=== PATIENT | female | born 1935 | race Caucasian/White ===

== ENCOUNTER 2016-11-27 13:20 | Inpatient (IN) | payer MEDICARE ==
[~2016-11-27 13:20] MED LIST: ADVAI100I PO; ATEN1TAB73 PO; CALC1TAB26 PO; GLUC500C4 PO; PNEU13P IM; VENTAER INH; WARF2.5T40 PO; WARF5TAB PO
[2016-11-27 13:22] VITALS: BP 150/82; PULSE 88; RESP 15; TEMP 97.6; O2SAT 98
--- NOTE | 2016-11-27 13:28 | PD ---
Physical Exam Date Seen by Provider: Nov 27, 2016 Time Seen by Provider: 13:26 Narrative 80 YOWF C/O PNEUMONIA. SICK 5 WEEKS. XRAY AT [facility] YEST WORSE. VSS. WAITING FOR BED PLACEMENT Data Data Last Documented VS Vital Signs Date Time Temp Pulse Resp B/P Pulse Ox O2 Delivery O2 Flow Rate FiO2 11/27/16 13:22 97.6 88 15 150/82 98 MDM Medical Record Reviewed: Yes Supervised Visit with AINSLEY: Yes Norm Martinez Nov 27, 2016 13:28
[2016-11-27 13:59] VITALS: BP 143/87; PULSE 91; RESP 18; O2SAT 97
[2016-11-27 14:14] LABS: AUTOMATED NEUTROPHIL # 4.5 TH/MM3 (1.8-7.7); BASOPHIL # 0.1 TH/MM3 (0-0.2); BASOPHIL % 0.8 % (0.0-2.0); EOSINOPHIL # 0.1 TH/MM3 (0-0.4); EOSINOPHIL % 0.8 % (0.0-4.0); HEMATOCRIT 40.4 % (35.0-46.0); HEMO FLAGS DIFF FINAL; LYMPH % 31.8 % (9.0-44.0); LYMPHOCYTE # 2.4 TH/MM3 (1.0-4.8); MEAN CELL VOLUME 90.2 FL (80.0-100.0); MEAN CORPUSCULAR HEMOGLOBIN 30.5 PG (27.0-34.0); MEAN CORPUSCULAR HGB CONC 33.8 % (32.0-36.0); MONO % 8.4 % (0.0-8.0); NEUT % 58.2 % (16.0-70.0); PLATELET COUNT 198 TH/MM3 (150-450); RED BLOOD COUNT 4.47 MIL/MM3 (4.00-5.30); WHITE BLOOD COUNT 7.6 TH/MM3 (4.0-11.0)
[2016-11-27] MEDS ORDERED: VANCOMYCIN INJ 1,000 MG in SODIUM CHLOR 0.9% 250 ML INJ 250 ML IV ONE (14:15)
--- NOTE | 2016-11-27 14:21 | PD ---
HPI Chief Complaint: Respiratory Symptoms Time Seen by Provider: 14:16 Travel History International Travel<30 days: No Contact w/Intl Traveler<30days: No Traveled to known affect area: No History of Present Illness HPI 80-year-old female that presents to the ED for evaluation of worsening pneumonia. Per patient she follows with the [facility] doctor or Dr. HUGHES who evaluated her about 5 weeks ago and started her on azithromycin. At the time patient had a lot of cough and runny nose as well as congestion fevers chills and sweats as well as more weakness than recently. Per patient she did not get better and she had an x-ray done by her doctor which show pneumonia on the left lungs. Patient was then given Levaquin and she has finished the Levaquin and apparently was scheduled to have an x-ray which she got done yesterday at [email or web address] which show worsening pneumonia of the left lung. Patient was called by her doctor and told to come to the ED for IV antibiotics and likely admission. She states that overall she feels somewhat better. States that her cough and congestion seems to have improved although she does have some weakness that is still present. She denies any history of smoking but does have a history of COPD and asthma in the past. She states that she's been using her inhalers as prescribed by her doctor. She also has a history of A. fib and takes and the correlation for this. Per patient she has no pain. No abdominal pain. No nausea or vomiting. No diarrhea. Overall she feels well and is surprised of the findings on the x-ray. PFSH Past Medical History Arthritis: Yes Atrial Fibrillation: Yes Autoimmune Disease: No Blood Disorders: No Anxiety: No Depression: No Heart Rhythm Problems: Yes Cancer: Yes Cardiovascular Problems: Yes High Cholesterol: No COPD: Yes Endocrine: No Gastrointestinal Disorders: No Genitourinary: No Hiatal Hernia: Yes (03/2005) Neurologic: No Psychiatric: No Respiratory: Yes (EMPHYZEMA) Immunizations Current: Yes Myocardial Infarction: No Pneumonia: Yes Sickle Cell Disease: No PNEUMOCCOCAL Vaccine (Year): 2006 Menopausal: Yes Past Surgical History Abdominal Surgery: Yes (BOWEL OBSTRUCTION) Cholecystectomy: Yes (04/1997) Eye Surgery: Yes (BILAT CATARACT) Genitourinary Surgery: Yes (02/1973 PLASTIC INTERNAL URETHOTOMY) Gynecologic Surgery: Yes Hysterectomy: Yes (TOTAL 08/1977) Thoracic Surgery: Yes (LUMPECTOMY 04/1994) Other Surgery: Yes (REMOVAL ETHNOID SINUS, KIDNEY STONE) Social History Alcohol Use: Yes (WINE WITH DINNER) Tobacco Use: No Substance Use: No Allergies-Medications (Allergen,Severity, Reaction): Coded Allergies: Aspirin (Verified Allergy, Severe, 04/09/16) Bextra (Verified Allergy, Severe, 04/09/16) Celebrex (Verified Allergy, Severe, 04/09/16) Darvocet-N 100 (Verified Allergy, Severe, 04/09/16) Ibuprofen (Verified Allergy, Severe, 04/09/16) Oxycodone (Verified Allergy, Severe, 04/09/16) Parafon Forte (Verified Allergy, Severe, 04/09/16) Paroxetine (Verified Allergy, Severe, 04/09/16) Paxil (Verified Allergy, Severe, 04/09/16) Penicillin (Verified Allergy, Severe, 04/09/16) Percocet (Verified Allergy, Severe, 04/09/16) Prilosec (Verified Allergy, Severe, 04/09/16) Robaxin (Verified Allergy, Severe, 04/09/16) Salsalate (Verified Allergy, Severe, 04/09/16) Sulfa (Verified Allergy, Severe, 04/09/16) Temazepam (Verified Allergy, Severe, 04/09/16) Amoxicillin (Verified Allergy, Unknown, 11/27/16) Clindamycin (Verified Allergy, Unknown, 11/27/16) Ofloxacin (Verified Allergy, Unknown, 11/27/16) Toprol Xl (Verified Allergy, Unknown, 11/27/16) Vancenase (Verified Allergy, Unknown, 11/27/16) Uncoded Allergies: CLINORIL (Allergy, Severe, 11/12/11) Reported Meds & Prescriptions Reported Meds & Active Scripts Active Review of Systems Except as stated in HPI: all other systems reviewed are Neg Physical Exam Narrative GENERAL: Well-nourished, well-developed patient in no apparent distress. SKIN: Warm and dry. HEAD: Atraumatic. Normocephalic. EYES: Pupils equal and round reactive to light and accommodation. No scleral icterus. No injection or drainage. ENT: No nasal bleeding or discharge. Mucous membranes pink and moist. TMs are clear with no sign of infection or perforation. No mastoid tenderness. Ear canals are intact bilaterally. No lymphadenopathy. Nostril mucosa is red and moist with clear mucus noted. No sinus tenderness to palpation noted. Tonsils are not enlarged or swollen. No ulvua Deviation. Tongue is midline. NECK: Trachea midline. No JVD. No meningeal signs noted CARDIOVASCULAR: Regular rate and rhythm. No murmurs, S3, S4. RESPIRATORY: No accessory muscle use. Mild wheezing in the lower lung lacey bilaterally. Breath sounds equal bilaterally. GASTROINTESTINAL: Abdomen soft, non-tender, nondistended. Hepatic and splenic margins not palpable. MUSCULOSKELETAL: Extremities without clubbing, cyanosis, or edema. No obvious deformities. Full range of motion of the upper and lower extremities bilaterally. 2+ pulses bilaterally. NEUROLOGICAL: Awake and alert. No obvious cranial nerve deficits. Motor grossly within normal limits. Five out of 5 muscle strength in the arms and legs. Normal speech. PSYCHIATRIC: Appropriate mood and affect; insight and judgment normal. Data Data Last Documented VS Vital Signs Date Time Temp Pulse Resp B/P Pulse Ox O2 Delivery O2 Flow Rate FiO2 11/27/16 13:59 91 18 143/87 97 Room Air 11/27/16 13:22 97.6 Orders Complete Blood Count With Diff (11/27/16 13:36) Basic Metabolic Panel (Bmp) (11/27/16 13:36) Blood Culture (11/27/16 13:36) Magnesium (Mg) (11/27/16 13:36) Iv Access Insert/Monitor (11/27/16 13:36) Coag Profile (11/27/16 13:44) Vancomycin Inj (Vancomycin Inj) (11/27/16 14:15) Sputum Culture And Gram Stain (11/27/16 14:15) Admit Order (Ed Use Only) (11/27/16 14:28) Labs Laboratory Tests Test 11/27/16 14:00 White Blood Count 7.6 TH/MM3 Red Blood Count 4.47 MIL/MM3 Hemoglobin 13.7 GM/DL Hematocrit 40.4 % Mean Corpuscular Volume 90.2 FL Mean Corpuscular Hemoglobin 30.5 PG Mean Corpuscular Hemoglobin 33.8 % Concent Red Cell Distribution Width 15.0 % Platelet Count 198 TH/MM3 Mean Platelet Volume 8.2 FL Neutrophils (%) (Auto) 58.2 % Lymphocytes (%) (Auto) 31.8 % Monocytes (%) (Auto) 8.4 % Eosinophils (%) (Auto) 0.8 % Basophils (%) (Auto) 0.8 % Neutrophils # (Auto) 4.5 TH/MM3 Lymphocytes # (Auto) 2.4 TH/MM3 Monocytes # (Auto) 0.6 TH/MM3 Eosinophils # (Auto) 0.1 TH/MM3 Basophils # (Auto) 0.1 TH/MM3 CBC Comment DIFF FINAL Differential Comment Prothrombin Time 28.4 SEC Prothromb Time International 2.5 RATIO Ratio Activated Partial 41.1 SEC Thromboplast Time Sodium Level 134 MEQ/L Potassium Level 4.2 MEQ/L Chloride Level 101 MEQ/L Carbon Dioxide Level 23.6 MEQ/L Anion Gap 9 MEQ/L Blood Urea Nitrogen 8 MG/DL Creatinine 0.78 MG/DL Estimat Glomerular Filtration 71 ML/MIN Rate Random Glucose 94 MG/DL Calcium Level 8.8 MG/DL Magnesium Level 2.1 MG/DL MDM Medical Decision Making Medical Screen Exam Complete: Yes Emergency Medical Condition: Yes Medical Record Reviewed: Yes Interpretation(s) CBC & BMP Diagram 11/27/16 14:00 Coags with INR of 2.5 Differential Diagnosis Worsening pneumonia versus aspiration pneumonia versus COPD versus infiltrate Narrative Course 80-year-old female that presents to the ED for evaluation of worsening pneumonia. Patient was properly examined and was found to have signs and symptoms concerning for worsening pneumonia. I spoke with Dr. HUGHES on the phone who gave me a summary of the patient and recommends admission as patient has failed outpatient treatment worsening pneumonia on chest x-ray outpatient. Labs were started. Patient was started on IV vancomycin after speaking with my attending who agrees with plan. [facility] will be contacted. I spoke with Dr. Alonso who agrees to admission. Procedures EKG Prior to Arrival: No Diagnosis Primary Impression: Pneumonia Qualified Code: J18.1 - Pneumonia of left lower lobe due to infectious organism Admitting Information Admitting Physician Requests: Admit Gentry Paris Nov 27, 2016 14:21
[2016-11-27 14:22] LABS: APTT (PATIENT) 41.1 SEC (24.3-30.1); INTERNATIONAL NORMALIZED RATIO 2.5 RATIO; PROTHROMBIN TIME - PATIENT 28.4 SEC (9.8-11.6)
[2016-11-27 14:26] LABS: BICARBONATE 23.6 MEQ/L (21.0-32.0); MAGNESIUM 2.1 MG/DL (1.5-2.5); POTASSIUM 4.2 MEQ/L (3.5-5.1)
[2016-11-27] MEDS ORDERED: METO50TA PO (14:40)
[2016-11-27] MEDS ORDERED: ADVA250A INH (14:40)
[2016-11-27] MEDS ORDERED: TYLE325T PO (14:40)
[2016-11-27] MEDS ORDERED: OMEG10005 PO (14:40)
[2016-11-27] MEDS ORDERED: FEXO15TA PO (14:40)
[2016-11-27] MEDS ORDERED: [UNRECOGNIZED DRUG - CODE] PO (14:40)
[2016-11-27] MEDS ORDERED: IPRA17I INH (14:40)
[2016-11-27] MEDS ORDERED: GLUCCAP5 PO (14:40)
[2016-11-27] MEDS ORDERED: LUTE1TAB PO (14:40)
[2016-11-27] MEDS ORDERED: PROB1TAB PO (14:40)
[2016-11-27] MEDS ORDERED: COUM5TAB PO ×2 (14:40)
[2016-11-27] MEDS ORDERED: SUPETAB25 PO (14:40)
--- NOTE | 2016-11-27 14:40 | PD ---
Physical Exam Narrative I, Dr. Christianson, have reviewed the advance practice practitioner's documentation and am in agreement, met with the patient face to face, made the diagnosis, and the medical decision making was done by me. *My assessment and Findings: Pneumonia that failed outpatient treatment. 80yo F sent in by PMD for worsening pneumonia seen on CXR. Pt does complain of generalized weakness but is not more sob and coughing has improved. Labs reviewed, no leukocytosis. BMP unremarkable. Pt is allergic to a lot of medications. Will give vancomycin and aztreonam. Pt admitted to Dr. Figueroa. Data Data Last Documented VS Vital Signs Date Time Temp Pulse Resp B/P Pulse Ox O2 Delivery O2 Flow Rate FiO2 11/27/16 13:59 91 18 143/87 97 Room Air 11/27/16 13:22 97.6 Orders Complete Blood Count With Diff (11/27/16 13:36) Basic Metabolic Panel (Bmp) (11/27/16 13:36) Blood Culture (11/27/16 13:36) Magnesium (Mg) (11/27/16 13:36) Iv Access Insert/Monitor (11/27/16 13:36) Coag Profile (11/27/16 13:44) Vancomycin Inj (Vancomycin Inj) (11/27/16 14:15) Sputum Culture And Gram Stain (11/27/16 14:15) Admit Order (Ed Use Only) (11/27/16 14:28) Labs Laboratory Tests Test 11/27/16 14:00 White Blood Count 7.6 TH/MM3 Red Blood Count 4.47 MIL/MM3 Hemoglobin 13.7 GM/DL Hematocrit 40.4 % Mean Corpuscular Volume 90.2 FL Mean Corpuscular Hemoglobin 30.5 PG Mean Corpuscular Hemoglobin 33.8 % Concent Red Cell Distribution Width 15.0 % Platelet Count 198 TH/MM3 Mean Platelet Volume 8.2 FL Neutrophils (%) (Auto) 58.2 % Lymphocytes (%) (Auto) 31.8 % Monocytes (%) (Auto) 8.4 % Eosinophils (%) (Auto) 0.8 % Basophils (%) (Auto) 0.8 % Neutrophils # (Auto) 4.5 TH/MM3 Lymphocytes # (Auto) 2.4 TH/MM3 Monocytes # (Auto) 0.6 TH/MM3 Eosinophils # (Auto) 0.1 TH/MM3 Basophils # (Auto) 0.1 TH/MM3 CBC Comment DIFF FINAL Differential Comment Prothrombin Time 28.4 SEC Prothromb Time International 2.5 RATIO Ratio Activated Partial 41.1 SEC Thromboplast Time Sodium Level 134 MEQ/L Potassium Level 4.2 MEQ/L Chloride Level 101 MEQ/L Carbon Dioxide Level 23.6 MEQ/L Anion Gap 9 MEQ/L Blood Urea Nitrogen 8 MG/DL Creatinine 0.78 MG/DL Estimat Glomerular Filtration 71 ML/MIN Rate Random Glucose 94 MG/DL Calcium Level 8.8 MG/DL Magnesium Level 2.1 MG/DL MDM Supervised Visit with AINSLEY: Yes Diagnosis Primary Impression: Pneumonia Qualified Code: J18.1 - Pneumonia of left lower lobe due to infectious organism Admitting Information Admitting Physician Requests: Danielle Son DO Nov 27, 2016 14:40
[2016-11-27] MEDS ORDERED: AZTREONAM INJ 1,000 MG in SODIUM CHLORIDE 0.9% INJ 100 ML IV ONE (14:45)
--- NOTE | 2016-11-27 15:50 | HHI.HP ---
HPI Service [facility] Hospitalists Primary Care Physician Neeru Diaz MD Admission Diagnosis acute pneumonia, failed outpatient treatment Chief Complaint: Productive cough, SOB Travel History International Travel<30 Days: No Contact w/Intl Traveler <30 Da: No Traveled to Known Affected Are: No History of Present Illness Ms. Keith is an 80 y/o WF with asthma, COPD, paroxysmal atrial fibrillation on chronic anticoagulation with Coumadin, HTN, and pulmonary HTN. She was sent to the ED by her PCP for abnormal CXR. Pt reports that around 5 weeks ago she developed productive cough, congestion, fevers/chills and generalized weakness with pleuritic chest pain. She was seen by Dr. Diaz, her PCP, on 10/30/16 and was prescribed Azithromycin. Pt was sent for a CXR at that time which noted atherosclerosis of the thoracic aorta, cardiomegaly and COPD changes with scarring involving the lung lacey especially the apices but no acute process. Pt did not have any relief of her symptoms with completion of the Azithromycin and called her PCP. Pt had Levaquin and Prednisone called in and she was sent for another CXR on 11/05 which noted interval development of a patchy basilar infiltrate when compared to earlier study and are more focal consolidative infiltrate involving the left lower lung field and minimal infiltrate in probably the right middle lobe also noted. She reports that over the last week or so she has been feeling better overall but still having intermittent productive cough and has still felt SOB. Her SOB has not improved much and she is still getting winded easily with minimal ambulation. Pt was sent for repeat CXR on 11/26/16 which noted increasing abnormal density and consolidation at the right lung base probably representing worsening pneumonia and consolidation which has increased from the most recent study, some streaky infiltrate at the left base medically unchanged, and chronic changes at the apices are unchanged from previous study. Pt was called with the results of her most recent CXR and instructed to come to the ED for IV antibiotics and further workup. Labs at admission noted a normal WBC count. She has been afebrile. Pt does have a hx of asthma and COPD. Her last PFT in 10/15/16 noted FEV1 is 54% predicted. Pt denies any hx of tobacco use but she did had second hand smoke exposure for several years. She takes Advair BID and Atrovent Q4H. Pt had tried some breathing treatments with Albuterol in the past but had to stop this due to it causing her HR to go too fast. Review of Systems Constitutional: COMPLAINS OF: Change in appetite, DENIES: Fever, Chills Ears, nose, mouth, throat: DENIES: Vertigo, Throat pain, Running Nose Respiratory: COMPLAINS OF: Cough, Sputum production, Shortness of breath Cardiovascular: DENIES: Chest pain, Palpitations Gastrointestinal: DENIES: Abdominal pain, Diarrhea, Nausea, Vomiting Genitourinary: DENIES: Hematuria Musculoskeletal: DENIES: Joint pain, Neck pain Integumentary: DENIES: Rash Neurologic: DENIES: Headache Psychiatric: DENIES: Confusion Past Family Social History Past Medical History A. fib COPD Asthma Recurrent bladder infections, follows with Dr. Brownlee Hx of bowel obstruction Osteoarthritis Past Surgical History Cholecystectomy Lumpectomy, negative for malignancy NILDA + BSO (08/1977) Plastic internal urethrotomy (02/2013) Small bowel resection secondary to obstruction (10/2011) Reported Medications Metoprolol Tartrate 25 Mg PO BID Tylenol (Acetaminophen) 325 Mg Tab 650 Mg PO TID Jerri Allergy (Fexofenadine HCl) 180 Mg Tab 180 Mg PO DAILY Coumadin (Warfarin) 5 Mg Tab 2.5 Mg PO SUMO Take 1/2 tablet (2.5mg) on Saturday,Saturday,Saturday, and Saturday Coumadin (Warfarin) 5 Mg Tab 5 Mg PO Take 1 tablet (5mg) on Saturday and Saturday Atrovent HFA 12.9 GM Inh (Ipratropium [place]) 17 Mcg/Act Aer 2 Puff INH BID Advair Diskus Inh (Fluticasone-Salmeterol Inh) 250-50 Mcg/Blist Aer 1 Puff INH BID Rinse mouth after use. Lutein Unknown Strength Tab 1 Tab PO DAILY Probiotic (Probiotic Product) 1 Tab Tab 1 Tab PO DAILY [place]-3 Fish Oil 1000 mg ([place]-3 Fatty Acids) 1 Cap Cap 1,000 Mg PO DAILY Glucosamine-Chondroitin (Misc Natural Products) 1 Cap 1 Cap PO BID Calcium-Carb 600 + D (Calcium Carbonate-Vitamin D) 600-125 Mg-Unit Tab 1 Tab PO DAILY Super B-50 (B-Complex W/Biotin & Folic Acid) Unknown Strength Tab 1 Tab PO DAILY Allergies: Coded Allergies: Aspirin (Verified Allergy, Severe, 04/09/16) Bextra (Verified Allergy, Severe, 04/09/16) Celebrex (Verified Allergy, Severe, 04/09/16) Darvocet-N 100 (Verified Allergy, Severe, 04/09/16) Ibuprofen (Verified Allergy, Severe, 04/09/16) Oxycodone (Verified Allergy, Severe, 04/09/16) Parafon Forte (Verified Allergy, Severe, 04/09/16) Paroxetine (Verified Allergy, Severe, 04/09/16) Paxil (Verified Allergy, Severe, 04/09/16) Penicillin (Verified Allergy, Severe, 04/09/16) Percocet (Verified Allergy, Severe, 04/09/16) Prilosec (Verified Allergy, Severe, 04/09/16) Robaxin (Verified Allergy, Severe, 04/09/16) Salsalate (Verified Allergy, Severe, 04/09/16) Sulfa (Verified Allergy, Severe, 04/09/16) Temazepam (Verified Allergy, Severe, 04/09/16) Amoxicillin (Verified Allergy, Unknown, 11/27/16) Clindamycin (Verified Allergy, Unknown, 11/27/16) Ofloxacin (Verified Allergy, Unknown, 11/27/16) Toprol Xl (Verified Allergy, Unknown, 11/27/16) Vancenase (Verified Allergy, Unknown, 11/27/16) Uncoded Allergies: CLINORIL (Allergy, Severe, 11/12/11) Family History Father with hx of DM Mother with hx of liver cirrhosis (no EtOH abuse) Social History Occasional alcohol use, one glass of wine three times per week, but none for the last few weeks Denies any hx of tobacco use but she was exposed to second hand smoke for several years Denies any hx of illicit drug use Physical Exam Vital Signs Vital Signs Date Time Temp Pulse Resp B/P Pulse Ox O2 Delivery O2 Flow Rate FiO2 11/27/16 13:59 91 18 143/87 97 Room Air 11/27/16 13:39 70 18 Room Air 11/27/16 13:22 97.6 88 15 150/82 98 Physical Exam GENERAL: This is a well-nourished, well-developed patient, in no apparent distress. HEENT: Atraumatic. Normocephalic. No temporal or scalp tenderness. No scleral icterus. Airway patent. NECK: Trachea midline, supple, nontender. CARDIO: Regular. RESP: Scattered rhonchi. Egophony at the right base noted ABD: +BS, soft, non-tender, nondistended. EXT: Extremities without clubbing, cyanosis, or edema. NEURO: Awake and alert. Motor and sensory grossly within normal limits. Normal speech. Laboratory Laboratory Tests Test 11/27/16 14:00 White Blood Count 7.6 Red Blood Count 4.47 Hemoglobin 13.7 Hematocrit 40.4 Mean Corpuscular Volume 90.2 Mean Corpuscular Hemoglobin 30.5 Mean Corpuscular Hemoglobin 33.8 Concent Red Cell Distribution Width 15.0 Platelet Count 198 Mean Platelet Volume 8.2 Neutrophils (%) (Auto) 58.2 Lymphocytes (%) (Auto) 31.8 Monocytes (%) (Auto) 8.4 Eosinophils (%) (Auto) 0.8 Basophils (%) (Auto) 0.8 Neutrophils # (Auto) 4.5 Lymphocytes # (Auto) 2.4 Monocytes # (Auto) 0.6 Eosinophils # (Auto) 0.1 Basophils # (Auto) 0.1 CBC Comment DIFF FINAL Differential Comment Prothrombin Time 28.4 Prothromb Time International 2.5 Ratio Activated Partial 41.1 Thromboplast Time Sodium Level 134 Potassium Level 4.2 Chloride Level 101 Carbon Dioxide Level 23.6 Anion Gap 9 Blood Urea Nitrogen 8 Creatinine 0.78 Estimat Glomerular Filtration 71 Rate Random Glucose 94 Calcium Level 8.8 Magnesium Level 2.1 Date/Time Procedure Status Source Growth 11/27/16 14:00 Aerobic Blood Culture Received Blood Peripheral Pending 11/27/16 14:00 Anaerobic Blood Culture Received Blood Peripheral Pending Result Diagram: 11/27/16 1400 11/27/16 1400 Imaging Outpt Records: CXR (10/30/16): - Atherosclerosis of the thoracic aorta and cardiomegaly and COPD changes with scarring involving the lung lacey especially the apices. No acute process. CXR (11/05/16): - Interval development of a patchy basilar infiltrate when compared to eariler study and are more focal consolidative infiltrate involving the left lower lung field. - Minimal infiltrate in probably the right middle lobe also noted. - Findings suggest some element of pneumonitis KUB (11/14/16): - Prior surgery left lower abdomen and prior cholecystectomy. - NSBGP - No definite ileus or obstructive patter noted. - Persistent infiltrate at the right left base noted when compared with the earlier examination. This suggest some basilar atelectasis or fibrosis. CXR (11/26/16): - There is increasing abnormal density and consolidation at the right lung base probably representing worsening pneumonia and consolidation. This has increased from the most recent study. - There is some streaky infiltrate at the left base medically unchanged. - Chronic changes at the apices are unchanged from previous study. - No other acute changes noted. Septic Shock Reassessment Heart: Regular rate and rhythm Lungs: Other Skin: Warm Assessment and Plan Problem List: (1) Pneumonia Status: Acute Plan: - Pt is an 80 y/o female with asthma and COPD. - Pt reports that around 5 weeks ago she developed productive cough, congestion , fevers/chills and generalized weakness with pleuritic chest pain. - She was seen by Dr. Diaz, her PCP, on 10/30/16 and was prescribed Azithromycin and was sent for a CXR which noted no acute process. - Pt did not have any relief of her symptoms with completion of the Azithromycin and was started on Levaquin and Prednisone and sent for another CXR on 11/05 which noted interval development of a patchy basilar infiltrate when compared to earlier study and are more focal consolidative infiltrate involving the left lower lung field and minimal infiltrate in probably the right middle lobe also noted. - Pt did have some symptom relief over the last week or so she has been feeling better overall but still having intermittent productive cough and has still felt SOB and is still getting winded easily with minimal ambulation. - Pt was sent for repeat CXR on 11/26/16 which noted increasing abnormal density and consolidation at the right lung base probably representing worsening pneumonia and consolidation which has increased from the most recent study, some streaky infiltrate at the left base medically unchanged, and chronic changes at the apices are unchanged from previous study. - Pt was sent to the ED for IV antibiotics and further workup. - Labs at admission noted a normal WBC count. She has been afebrile. - CT Thorax - Pt was given Azactam and Vancomycin in the ED - We will give Levaquin IV - Cont. Advair - Ipratropium nebs Q4H WA - Pt does not want Mucinex, she reports that she has not tolerated this well. - Sputum culture - DVT prophylaxis with SCDs (2) COPD (chronic obstructive pulmonary disease) Status: Chronic Plan: - Cont. home meds - Ipratropium Q4HWA - Her last PFT in 10/15/16 noted FEV1 is 54% predicted. (3) Asthma Status: Chronic Plan: - See above. (4) Atrial fibrillation Status: Chronic Plan: - Resume Metoprolol 25mg po BID - Cont. Coumadin - Monitor INR closely as the Levaquin may cause this to be difficult to control Assessment and Plan Patient examined. Assessment and plan formulated with Stephanie Plascencia PA-C. I agree with the above. admitted for concern of persistent CAP. abx givven ct chest ordered to further evaluate the infiltrate worsening depsite abx outpt. Physician Certification 2 Midnight Certification Type: Admission for Inpatient Services Order for Inpatient Services The services are ordered in accordance with Medicare regulations or non- Medicare payer requirements, as applicable. In the case of services not specified as inpatient-only, they are appropriately provided as inpatient services in accordance with the 2-midnight benchmark. Estimated LOS (days): 2 2 days is the estimated time the patient will need to remain in the hospital, assuming treatment plan goals are met and no additional complications. Post-Hospital Plan: Home Problem Qualifiers (1) Pneumonia: Qualified Code: J18.1 - Pneumonia of left lower lobe due to infectious organism Stephanie Plascencia Nov 27, 2016 15:50 Renzo Figueroa MD Nov 28, 2016 00:37
[2016-11-27] MEDS ORDERED: ONDANSETRON HCL 4 MG/2 ML VIAL IV PRN (16:00)
[2016-11-27] MEDS ORDERED: WARFARIN SOD 5 MG TAB PO SCH (16:00)
[2016-11-27] MEDS: RESP: IPRATROPIUM 0.5 MG/2.5 ML NEB NEB SCH ×2 (16:00→20:00)
[2016-11-27 16:07] VITALS: BP 152/81; PULSE 97; RESP 18; O2SAT 98
--- NOTE | 2016-11-27 17:26 | RADRPT ---
EXAM DATE/TIME: 11/27/2016 16:34 [place] COMPARISON: No previous studies available for comparison. INDICATIONS : Pneumonia. RADIATION DOSE: 5.1 CTDIvol (mGy) MEDICAL HISTORY : Cardiovascular disease. Chronic obstructive pulmonary disease. SURGICAL HISTORY : None. ENCOUNTER: Initial ACUITY: 2 days PAIN SCALE: 0/10 LOCATION: chest TECHNIQUE: Volumetric scanning of the chest was performed. Using automated exposure control and adjustment of t he mA and/or kV according to patient size, radiation dose was kept as low as reasonably achievable to obtain optimal diagnostic quality images. FINDINGS: LUNGS: There is mild biapical probable pleural-parenchymal scarring. There are areas of nodular infiltrate i n the lung bases bilaterally, worse on the right than the left. Elsewhere, minimal patchy reticular i nfiltrate is present in portions of the lingula and right middle lobe. Mild occasional fissural thick ening is present. PLEURAE: There is no pleural thickening or pleural effusion. MEDIASTINUM: No evidence of mediastinal adenopathy or mass. Small hiatal hernia. AXILLAE: Within normal limits. No lymphadenopathy. MUSCULOSKELETAL: Within normal limits for patient age. MISCELLANEOUS: The visualized upper abdominal organs demonstrate no acute abnormality. CONCLUSION: Areas of nodular consolidative density in the bases bilaterally, most probably infectious/inflammator y however followup to assure resolution would be recommended. Lobito Shelton MD on November 27, 2016 at 17:00 Board Certified Radiologist. This report was verified electronically.
[2016-11-27 20:00] VITALS: BP 137/59; PULSE 95; RESP 18; TEMP 96.2; O2SAT 95; O2SAT 97
[2016-11-27] MEDS: METOPROLOL TARTRATE 25 MG TAB PO SCH (20:35)
[2016-11-27] MEDS: ACETAMINOPHEN 325 MG TAB PO PRN (20:57)
[2016-11-27] MEDS ORDERED: NON-FORMULARY DRUG (Fluticasone-Salmeterol Inh (Advair Diskus Inh) 1 PUFF) INH SCH (21:00)
[2016-11-27] MEDS ORDERED: METOPROLOL TARTRATE 50 MG TAB PO SCH (21:00)
[2016-11-27] MEDS: BUDESONIDE-FORMOTEROL 160/4.5 MCG INHALER INH SCH (21:00)
[2016-11-27] MEDS ORDERED: guaiFENesin E.R. 600 MG TAB PO SCH (21:00)
[2016-11-28] VITALS (8 sets, daily range): BP systolic 95–143; BP diastolic 53–89; PULSE 74–101; RESP 18; TEMP 95.9–97.2; O2SAT 95–98
[2016-11-28] MEDS: ACETAMINOPHEN 325 MG TAB PO PRN ×3 (06:24→23:00)
[2016-11-28 08:00] LABS: AUTOMATED NEUTROPHIL # 3.3 TH/MM3 (1.8-7.7); BASOPHIL # 0.1 TH/MM3 (0-0.2); BASOPHIL % 0.8 % (0.0-2.0); EOSINOPHIL # 0.1 TH/MM3 (0-0.4); EOSINOPHIL % 1.3 % (0.0-4.0); HEMATOCRIT 38.4 % (35.0-46.0); HEMO FLAGS DIFF FINAL; LYMPHOCYTE # 2.4 TH/MM3 (1.0-4.8); MEAN CELL VOLUME 90.9 FL (80.0-100.0); MEAN CORPUSCULAR HEMOGLOBIN 30.7 PG (27.0-34.0); MEAN CORPUSCULAR HGB CONC 33.8 % (32.0-36.0); MONO % 10.6 % (0.0-8.0); NEUT % 50.3 % (16.0-70.0); PLATELET COUNT 175 TH/MM3 (150-450); RED BLOOD COUNT 4.23 MIL/MM3 (4.00-5.30); RED CELL DISTRIBUTION WIDTH 15.2 % (11.6-17.2); WHITE BLOOD COUNT 6.6 TH/MM3 (4.0-11.0)
[2016-11-28 08:11] LABS: INTERNATIONAL NORMALIZED RATIO 2.8 RATIO; PROTHROMBIN TIME - PATIENT 32.6 SEC (9.8-11.6)
[2016-11-28 08:28] LABS: BICARBONATE 28.7 MEQ/L (21.0-32.0); MAGNESIUM 2.1 MG/DL (1.5-2.5); POTASSIUM 4.3 MEQ/L (3.5-5.1)
[2016-11-28] MEDS: RESP: IPRATROPIUM 0.5 MG/2.5 ML NEB NEB SCH ×4 (08:33→20:08)
[2016-11-28] MEDS ORDERED: RESP: BUDESONIDE 0.5 MG/2 ML NEB NEB ONE (09:00)
[2016-11-28] MEDS: METOPROLOL TARTRATE 25 MG TAB PO SCH ×2 (09:19→21:25)
[2016-11-28] MEDS: BUDESONIDE-FORMOTEROL 160/4.5 MCG INHALER INH SCH ×2 (09:19→21:26)
[2016-11-28] MEDS: LEVOFLOXACIN 500 MG PREMIX INJ 100 ML IV SCH (09:19)
--- NOTE | 2016-11-28 09:23 | HHI.PR ---
Subjective Remarks still somewhat sob. was having more productive cough until yesterday now more dry. Objective Vitals no labored breathing heart reg lung improved air entry abd s/nt ext no edema Vital Signs Date Time Temp Pulse Resp B/P Pulse Ox O2 Delivery O2 Flow Rate FiO2 11/28/16 08:46 96.9 93 18 100/69 96 11/28/16 04:00 95.9 79 18 130/66 97 11/28/16 00:00 96.0 74 18 95/53 96 11/27/16 20:00 96.2 95 18 137/59 95 11/27/16 20:00 97 21 11/27/16 16:07 97 18 152/81 98 Room Air 11/27/16 13:59 91 18 143/87 97 Room Air 11/27/16 13:39 70 18 Room Air 11/27/16 13:22 97.6 88 15 150/82 98 11/27/16 11/27/16 11/28/16 15:00 23:00 07:00 Intake Total 420 ml 600 ml Balance 420 ml 600 ml Intake Oral 420 ml 600 ml IV Total 0 ml # Voids 2 3 Result Diagram: 11/28/16 0645 11/28/16 0645 Imaging Outpt Records: CXR (10/30/16): - Atherosclerosis of the thoracic aorta and cardiomegaly and COPD changes with scarring involving the lung lacey especially the apices. No acute process. CXR (11/05/16): - Interval development of a patchy basilar infiltrate when compared to eariler study and are more focal consolidative infiltrate involving the left lower lung field. - Minimal infiltrate in probably the right middle lobe also noted. - Findings suggest some element of pneumonitis KUB (11/14/16): - Prior surgery left lower abdomen and prior cholecystectomy. - NSBGP - No definite ileus or obstructive patter noted. - Persistent infiltrate at the right left base noted when compared with the earlier examination. This suggest some basilar atelectasis or fibrosis. CXR (11/26/16): - There is increasing abnormal density and consolidation at the right lung base probably representing worsening pneumonia and consolidation. This has increased from the most recent study. - There is some streaky infiltrate at the left base medically unchanged. - Chronic changes at the apices are unchanged from previous study. - No other acute changes noted. A/P Problem List: (1) Pneumonia Status: Acute Plan: - Pt is an 80 y/o female with asthma and COPD. - Pt reports that around 5 weeks ago she developed productive cough, congestion , fevers/chills and generalized weakness with pleuritic chest pain. - She was seen by Dr. Diaz, her PCP, on 10/30/16 and was prescribed Azithromycin and was sent for a CXR which noted no acute process. - Pt did not have any relief of her symptoms with completion of the Azithromycin and was started on Levaquin x 5 days and Prednisone and sent for another CXR on 11/05 which noted interval development of a patchy basilar infiltrate when compared to earlier study and are more focal consolidative infiltrate involving the left lower lung field and minimal infiltrate in probably the right middle lobe also noted. - Pt did have some symptom relief over the last week or so she has been feeling better overall but still having intermittent productive cough and has still felt SOB and is still getting winded easily with minimal ambulation. - Pt was sent for repeat CXR on 11/26/16 which noted increasing abnormal density and consolidation at the right lung base probably representing worsening pneumonia and consolidation which has increased from the most recent study, some streaky infiltrate at the left base medically unchanged, and chronic changes at the apices are unchanged from previous study. - Pt was sent to the ED by pcp for IV antibiotics and further workup. CT chest shows nodular inflammatory infiltrates primarily in bases. she was started on iv abx. monitor inr closely as she developed supratherapeutic inr on abx before with alot of ecchymosis. cont nebs. add mucomyst. budesonide. ?steroid Long discussion with her. she would like to establish with a [employer] now and for f/u. Will ask Dr Antoine to evaluate her and f/u also. (2) COPD (chronic obstructive pulmonary disease) Status: Chronic Plan: - Cont. home meds - Ipratropium Q4HWA - Her last PFT in 10/15/16 noted FEV1 is 54% predicted. (3) Asthma Status: Chronic Plan: - See above. (4) Atrial fibrillation Status: Chronic Plan: - Resume Metoprolol 25mg po BID - Cont. Coumadin - Monitor INR closely as the Levaquin may cause this to be difficult to control Problem Qualifiers (1) Pneumonia: Qualified Code: J18.1 - Pneumonia of left lower lobe due to infectious organism Renzo Figueroa MD Nov 28, 2016 09:23
[2016-11-28] MEDS ORDERED: RESP: ACETYLCYSTEINE 20% 30 ML NEB NEB SCH (12:00)
[2016-11-28] MEDS ORDERED: WARFARIN SOD 5 MG TAB PO SCH (16:00)
[2016-11-28] MEDS ORDERED: RESP: BUDESONIDE 0.5 MG/2 ML NEB NEB SCH (20:00)
--- NOTE | 2016-11-28 22:35 | MB ---
cc: JENN HANDLEY TINA MD DATE OF CONSULTATION 11/28/[address] Figueroa. REASON FOR CONSULTATION Evaluation for COPD and lung infiltrate. HISTORY OF THE PRESENT ILLNESS Ms. Keith is a pleasant 80-year-old female with history of asthma and COPD. The patient has been having cough and congestion and pneumonia. She has been treated with three different antibiotics, did not get better. She denies any weight loss. No hemoptysis. No fever or chills. With these symptoms she presented to the hospital. She had a chest CT scan done which shows that she has apical pleural parenchymal scarring and also has nodular infiltrate in the lung. CBC showed WBC count 6.6, hemoglobin 13.0, hematocrit 38.4, MCV 90, platelet count 175. Sodium 142, potassium 4.3, chloride 106, CO2 28, BUN 9, creatinine 0.67. INR 2.8. PAST MEDICAL HISTORY Significant for: 1. A history of COPD. 2. Bronchial asthma. 3. Hypertension. 4. Atrial fibrillation. 5. History of bowel obstruction. 6. History of lumpectomy which was benign. 7. Cholecystectomy. 8. Small bowel resection. MEDICATIONS She is takin. Coumadin 2.5 milligrams. 2. Levaquin 500 milligrams daily. 3. Symbicort 160/4.5 two puffs twice a day. 4. Lopressor 25 milligrams twice a day. 5. Continue nebulizer treatment. 6. Coumadin. ALLERGIES SHE IS ALLERGIC TO AMOXICILLIN, ASPIRIN, BEXTRA, CLINORIL, CELEBREX, CLINDAMYCIN, DARVOCET, IBUPROFEN, OFLOXACIN, OXYCODONE, PARAFON FORTE, PAROXETINE, PAXIL, PENICILLIN, PERCOCET, PRILOSEC, ROBAXIN, SALSALATE AND SULFA. SOCIAL HISTORY She is a , lives alone. 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 No history of smoking. Drinks wine occasionally. FAMILY HISTORY She has two children, one son is fighting prostate cancer. REVIEW OF SYSTEMS Normally she is up, around and active. Weight is stable. No hemoptysis. No DVT or embolism. No malignancy. PHYSICAL EXAMINATION GENERAL: Reveals a thin built, elderly female. Not in any acute distress. Looks anxious. VITAL SIGNS: Blood pressure 128/72, heart rate 80, respirations 18, temperature 97.2. HEENT: Pupils are equal and reactive to light. She had bilateral cataract surgery done. Oral mucosa, nasal mucosa normal. NECK: Supple. JVP not raised. CHEST: Air entry equal bilaterally. No rhonchi. CARDIOVASCULAR: S1, S2 normal. ABDOMEN: Benign. EXTREMITIES: No edema. IMPRESSION 1. Bilateral nodular infiltrate with bronchiectatic changes and scarring in the lung. Possible inflammatory infective process, likely NITESH. 2. Bronchial asthma and COPD. 3. Hypertension. 4. Atrial fibrillation. 5. History of cholecystectomy. 6. Hysterectomy. 7. Lumpectomy. PLAN I discussed with the patient I will get her sputum for AFB. If her symptoms persist then we will consider bronchoscopy. Continue with aerosol treatment. Symbicort twice a day. Clinically she is stable and I will follow in the office. Thank you Dr. Figueroa for this consultation. MD EVARISTO Hendrix/KI /8:00 PM /10:11 PM JOSEPH
[2016-11-29] VITALS: BP 133/71; PULSE 94; RESP 20; TEMP 96.9; O2SAT 98
[2016-11-29 04:00] VITALS: BP_SYST 84; BP_SYST 88; BP_DIAS 48; BP_DIAS 50; PULSE 50; RESP 20; TEMP 97.1; O2SAT 60; O2SAT 98
[2016-11-29 07:11] LABS: INTERNATIONAL NORMALIZED RATIO 2.5 RATIO; PROTHROMBIN TIME - PATIENT 28.8 SEC (9.8-11.6)
[2016-11-29 07:30] VITALS: O2SAT 96
[2016-11-29] MEDS: RESP: IPRATROPIUM 0.5 MG/2.5 ML NEB NEB SCH ×2 (07:30→12:04)
[2016-11-29 08:00] VITALS: BP 140/78; PULSE 85; RESP 18; TEMP 96.1; O2SAT 90
[2016-11-29] MEDS: BUDESONIDE-FORMOTEROL 160/4.5 MCG INHALER INH SCH (08:02)
[2016-11-29] MEDS: ACETAMINOPHEN 325 MG TAB PO PRN (08:02)
[2016-11-29] MEDS: LEVOFLOXACIN 500 MG PREMIX INJ 100 ML IV SCH (08:03)
[2016-11-29] MEDS: METOPROLOL TARTRATE 25 MG TAB PO SCH (08:03)
[2016-11-29] MEDS ORDERED: LEVA500T PO (10:28)
--- NOTE | 2016-11-29 10:35 | HHI.DCPOC ---
Discharge Care Plan Diagnosis: (1) Insomnia (2) Pneumonia (3) COPD (chronic obstructive pulmonary disease) (4) Atrial fibrillation (5) Asthma Goals to Promote Your Health * To prevent worsening of your condition and complications * To maintain your health at the optimal level Directions to Meet Your Goals Take your medications as prescribed Follow your dietary instruction Follow activity as directed Keep your appointments as scheduled Take your immunizations and boosters as scheduled If your symptoms worsen call your PCP, if no PCP go to Urgent Care Center or Emergency Room Smoking is Dangerous to Your Health. Avoid second hand smoke Call the 24-hour hour crisis hotline for domestic abuse at Stephanie Plascencia Nov 29, 2016 10:35
--- NOTE | 2016-11-29 10:35 | HHI.FF ---
Face to Face Verification Diagnosis: (1) Pneumonia (2) COPD (chronic obstructive pulmonary disease) (3) Atrial fibrillation (4) Asthma (5) Insomnia Home Health Nursing Order: Nursing assessment with vital signs Instructions: Please check PT/INR on 12/03/16, and 12/05/16, with results to go to Dr. Diaz and to Dr. Gtz I have seen patient Isaiah Keith on 11/29/16. My clinical findings support the need for the requested home health care services because: Patient has SOB I certify that my clinical findings support that this patient is homebound because: Hx COPD- exertion dyspnea/weakness Stephanie Plascencia Nov 29, 2016 10:35
[2016-11-29 12:00] VITALS: BP 130/66; PULSE 88; RESP 21; TEMP 95.6; O2SAT 98
--- NOTE | 2016-11-29 19:32 | HHI.PR ---
Subjective Remarks eager for d/c feels a little better. Objective Vitals heart reg lung improved air entry few rhonci alexandrea lower lung zones abd s/nt ext no edema Vital Signs Date Time Temp Pulse Resp B/P Pulse Ox O2 Delivery O2 Flow Rate FiO2 11/29/16 12:00 95.6 88 21 130/66 98 11/29/16 08:00 96.1 85 18 140/78 90 11/29/16 07:30 96 21 11/29/16 04:00 97.1 50 20 88/50 98 11/29/16 04:00 84/48 60 11/29/16 00:00 20 11/29/16 00:00 96.9 94 20 133/71 98 11/28/16 20:09 98 21 11/28/16 20:00 97.0 101 18 143/89 95 11/28/16 11/28/16 11/29/16 15:00 23:00 07:00 Output Total 800 ml Balance -800 ml Output Urine Total 800 ml # Voids 5 # Bowel Movements 1 Result Diagram: 11/28/16 0645 11/28/16 0645 Imaging Outpt Records: CXR (10/30/16): - Atherosclerosis of the thoracic aorta and cardiomegaly and COPD changes with scarring involving the lung lacey especially the apices. No acute process. CXR (11/05/16): - Interval development of a patchy basilar infiltrate when compared to eariler study and are more focal consolidative infiltrate involving the left lower lung field. - Minimal infiltrate in probably the right middle lobe also noted. - Findings suggest some element of pneumonitis KUB (11/14/16): - Prior surgery left lower abdomen and prior cholecystectomy. - NSBGP - No definite ileus or obstructive patter noted. - Persistent infiltrate at the right left base noted when compared with the earlier examination. This suggest some basilar atelectasis or fibrosis. CXR (11/26/16): - There is increasing abnormal density and consolidation at the right lung base probably representing worsening pneumonia and consolidation. This has increased from the most recent study. - There is some streaky infiltrate at the left base medically unchanged. - Chronic changes at the apices are unchanged from previous study. - No other acute changes noted. A/P Problem List: (1) Pneumonia Status: Acute Plan: - Pt is an 80 y/o female with asthma and COPD. - Pt reports that around 5 weeks ago she developed productive cough, congestion , fevers/chills and generalized weakness with pleuritic chest pain. - She was seen by Dr. Diaz, her PCP, on 10/30/16 and was prescribed Azithromycin and was sent for a CXR which noted no acute process. - Pt did not have any relief of her symptoms with completion of the Azithromycin and was started on Levaquin x 5 days and Prednisone and sent for another CXR on 11/05 which noted interval development of a patchy basilar infiltrate when compared to earlier study and are more focal consolidative infiltrate involving the left lower lung field and minimal infiltrate in probably the right middle lobe also noted. - Pt did have some symptom relief over the last week or so she has been feeling better overall but still having intermittent productive cough and has still felt SOB and is still getting winded easily with minimal ambulation. - Pt was sent for repeat CXR on 11/26/16 which noted increasing abnormal density and consolidation at the right lung base probably representing worsening pneumonia and consolidation which has increased from the most recent study, some streaky infiltrate at the left base medically unchanged, and chronic changes at the apices are unchanged from previous study. - Pt was sent to the ED by pcp for IV antibiotics and further workup. CT chest shows nodular inflammatory infiltrates primarily in bases. she was started on iv abx. monitor inr closely as she developed supratherapeutic inr on abx before with alot of ecchymosis. cont nebs. add mucomyst Long discussion with her. she would like to establish with a [employer] now and for f/u. Pt seen by Dr Antoine. considered jackelin...but pt cough now dry. he will f/u clinic and consider bronch if no better. finish abx with levaquin [facility] ordered to monitor inr..to be sent to pcp/cardiology (2) COPD (chronic obstructive pulmonary disease) Status: Chronic Plan: - Cont. home meds - Ipratropium Q4HWA - Her last PFT in 10/15/16 noted FEV1 is 54% predicted. (3) Asthma Status: Chronic Plan: - See above. (4) Atrial fibrillation Status: Chronic Plan: - Resume Metoprolol 25mg po BID - Cont. Coumadin - Monitor INR closely as the Levaquin may cause this to be difficult to control Problem Qualifiers (1) Pneumonia: Qualified Code: J18.1 - Pneumonia of left lower lobe due to infectious organism Renzo Figueroa MD Nov 29, 2016 19:32
== END 2016-11-29 14:30 | disposition home health service (06) | DRG 190 ==
LOC: NEPC 13:20 → NEDA 14:30 → N05A 17:51
PROVIDERS: ADMIT Hospitalist; ATTEND Hospitalist
DX: J44.0 Chronic obstructive pulmonary disease with (acute) lower respiratory infection (principal); J18.9 Pneumonia, unspecified organism; I27.2 Other secondary pulmonary hypertension; I48.0 Paroxysmal atrial fibrillation; Z79.01 Long term (current) use of anticoagulants; J45.909 Unspecified asthma, uncomplicated; I10 Essential (primary) hypertension; Z77.22 Contact with and (suspected) exposure to environmental tobacco smoke (acute) (chronic); M19.90 Unspecified osteoarthritis, unspecified site; I70.0 Atherosclerosis of aorta
CPT/HCPCS: 71250; 80048; 83735; 85025; 85610; 85730; 87015; 87040; 87070; 87205; 94640; 94664; 94667; 94668; 99285; J1956; J3370; J7050; J7626; J7644

== ENCOUNTER 2017-02-19 23:18 | Inpatient (IN) | payer MEDICARE ==
[~2017-02-19] VITALS: Ht 165.1 cm; Wt 65.9 kg
[~2017-02-19 23:18] MED LIST changes: +ADVA250A INH; -ADVAI100I PO; -ATEN1TAB73 PO; -CALC1TAB26 PO; +COUM5TAB PO; +FEXO15TA PO; -GLUC500C4 PO; +GLUCCAP5 PO; +IPRA17I INH; +LEVA500T PO; +LUTE1TAB PO; +METO50TA PO; +OMEG10005 PO; +PROB1TAB PO; +SUPETAB25 PO; +TYLE325T PO; -VENTAER INH; -WARF2.5T40 PO; -WARF5TAB PO; +[UNRECOGNIZED DRUG - CODE] PO
[2017-02-19 23:26] VITALS: BP 189/73; PULSE 95; RESP 18; TEMP 98.3; O2SAT 95
[2017-02-19] MEDS ORDERED: LIDOCAINE 1%/EPINEPHrine 1:100,000 SOLN 20 ML VIAL INFIL ONE (23:45)
[2017-02-19 23:48] VITALS: O2SAT 97
--- NOTE | 2017-02-19 23:48 | PD ---
HPI Chief Complaint: Fall Time Seen by Provider: 23:25 Travel History International Travel<30 days: No Contact w/Intl Traveler<30days: No Traveled to known affect area: No History of Present Illness HPI The patient is an 81 year old female who presents to the [facility] emergency department with a history of reportedly tripping and falling on a carpeted prior to arrival. The patient reportedly has a 7 cm laceration to the medial aspect of the left arm near the elbow. She has full range of motion of the left arm without any bony tenderness reported. She denies hitting her head. She denies having any loss of consciousness. She denies having any neck pain or back pain. The patient is chronically anticoagulated on Coumadin related to atrial fibrillation. She last had her INR checked today and it was reportedly 2. The patient reports having left hip pain. The patient reports that when she tripped on the carpet she landed on her left arm and left hip. She denies having any chest pain, chest pressure, shortness of breath, abdominal pain. And on review of systems she denies having any numbness or tingling to her extremities, weakness of her extremities, recent fevers, cough, congestion, vomiting, diarrhea, or urinary symptoms. [facility] Past Medical History Narrative Medical The patient's past medical history is significant for atrial fibrillation chronically anticoagulated on Coumadin, COPD, asthma, history of recurrent bladder infections, history of a bowel obstruction, history of osteoarthritis. Arthritis: Yes Atrial Fibrillation: Yes Autoimmune Disease: No Blood Disorders: No Anxiety: No Depression: No Heart Rhythm Problems: Yes Cancer: Yes Cardiovascular Problems: Yes High Cholesterol: No COPD: Yes Diabetes: No Endocrine: No Gastrointestinal Disorders: No Genitourinary: No Hiatal Hernia: Yes (03/2005) Neurologic: No Psychiatric: No Respiratory: Yes (EMPHYZEMA) Immunizations Current: Yes Myocardial Infarction: No Pneumonia: Yes Sickle Cell Disease: No PNEUMOCCOCAL Vaccine (Year): 2006 Menopausal: Yes Past Surgical History Narrative Surgical Patient's past surgical history is significant for cholecystectomy, lumpectomy that was negative for malignancy, total abdominal hysterectomy with bilateral salpingo-oophorectomy, urethrotomy, small bowel resection secondary to obstruction. Abdominal Surgery: Yes (BOWEL OBSTRUCTION) Cholecystectomy: Yes (04/1997) Eye Surgery: Yes (BILAT CATARACT) Genitourinary Surgery: Yes (02/1973 PLASTIC INTERNAL URETHOTOMY) Gynecologic Surgery: Yes Hysterectomy: Yes (TOTAL 08/1977) Thoracic Surgery: Yes (LUMPECTOMY 04/1994) Other Surgery: Yes (REMOVAL ETHNOID SINUS, KIDNEY STONE) Social History Alcohol Use: Yes (WINE WITH DINNER) Tobacco Use: No Substance Use: No Allergies-Medications (Allergen,Severity, Reaction): Coded Allergies: Aspirin (Verified Allergy, Severe, 02/19/17) Bextra (Verified Allergy, Severe, 02/19/17) Celebrex (Verified Allergy, Severe, 02/19/17) Darvocet-N 100 (Verified Allergy, Severe, 02/19/17) Ibuprofen (Verified Allergy, Severe, 02/19/17) Oxycodone (Verified Allergy, Severe, 02/19/17) Parafon Forte (Verified Allergy, Severe, 02/19/17) Paroxetine (Verified Allergy, Severe, 02/19/17) Paxil (Verified Allergy, Severe, 02/19/17) Penicillin (Verified Allergy, Severe, 02/19/17) Percocet (Verified Allergy, Severe, 02/19/17) Prilosec (Verified Allergy, Severe, 02/19/17) Robaxin (Verified Allergy, Severe, 02/19/17) Salsalate (Verified Allergy, Severe, 02/19/17) Sulfa (Verified Allergy, Severe, 02/19/17) Temazepam (Verified Allergy, Severe, 02/19/17) Amoxicillin (Verified Allergy, Unknown, 02/19/17) Clindamycin (Verified Allergy, Unknown, 02/19/17) Ofloxacin (Verified Allergy, Unknown, 02/19/17) Toprol Xl (Verified Allergy, Unknown, 02/19/17) Vancenase (Verified Allergy, Unknown, 02/19/17) Uncoded Allergies: CLINORIL (Allergy, Severe, 11/12/11) Reported Meds & Prescriptions Reported Meds & Active Scripts Active Reported Atenolol 25 Mg Tab 25 Mg PO BID Vitamin C (Ascorbic Acid) 250 Mg Tab 500 Mg PO DAILY Vitamin B Complex (B-Complex Vitamins) 1 Tab 1 Cap PO DAILY Tylenol Extra Strength (Acetaminophen) 500 Mg Tablet 360 Mg PO Q6HR Glucosamine & Chondroitin Cap (Glucosam/Chondr/Collagn/Hyalur) 1 Each Capsule 1 Cap PO BID Lutein Unknown Strength Tab 1 Tab PO DAILY Probiotic (Probiotic Product) 1 Tab Tab 1 Tab PO DAILY [place]-3 Fish Oil 1000 mg ([place]-3 Fatty Acids) 1 Cap Cap 1,000 Mg PO DAILY Glucosamine-Chondroitin (Misc Natural Products) 1 Cap 1 Cap PO BID Jerri Allergy (Fexofenadine HCl) 180 Mg Tab 180 Mg PO DAILY Coumadin (Warfarin) 5 Mg Tab 2.5 Mg PO SUMOWETHFR Take 1/2 tablet (2.5mg) on Saturday,Saturday,Saturday, and SATURDAY Coumadin (Warfarin) 5 Mg Tab 5 Mg PO Take 1 tablet (5mg) on Saturday and Saturday Atrovent HFA 12.9 GM Inh (Ipratropium [place]) 17 Mcg/Act Aer 2 Puff INH BID Advair Diskus Inh (Fluticasone-Salmeterol Inh) 250-50 Mcg/Blist Aer 1 Puff INH BID Rinse mouth after use. Review of Systems Except as stated in HPI: all other systems reviewed are Neg General / Constitutional: No: Fever Eyes: No: Visual changes HENT: No: Headaches, Neck Stiffness, Neck Pain Cardiovascular: No: Chest Pain or Discomfort Respiratory: No: Shortness of Breath Gastrointestinal: No: Nausea, Vomiting, Diarrhea, Abdominal Pain Genitourinary: No: Dysuria Musculoskeletal: Positive: Myalgias, Arthralgias, Limited ROM, Pain Skin: Positive Other (laceration to the left arm), No Rash Neurologic: No: Weakness, Focal Abnormalities, Headache, Change in Mentation, Slurred Speech, Sensory Disturbance Psychiatric: No: Depression Endocrine: No: Polydipsia Hematologic/Lymphatic: No: Easy Bruising Physical Exam Narrative General: The patient is a well-developed well-nourished female in no acute distress. Head and Neck exam: Head is normocephalic atraumatic. The patient has no pain on palpation of her scalp. No hematoma noted. No step-off or crepitus. No erythema or ecchymosis. Eyes: EOMI, pupils are equal round and reactive to light. Nose: Midline septum with pink mucous membranes Mouth: Dentition unremarkable. Moist mucus membranes. Posterior oropharynx is not erythematous. No tonsillar hypertrophy. Uvula midline. Airway patent. Neck: No palpable lymphadenopathy. No nuchal rigidity. No thyromegaly. Cardiovascular: Irregularly irregular with rate control in the 90s consistent with her history of atrial fibrillation without murmurs, gallops, or rubs. Lungs: Clear to auscultation bilaterally. No wheezes, rhonchi, or rales. No chest wall tenderness on palpation. No step-off or crepitus, no erythema or ecchymosis. No flail segment. Abdomen: Soft, without tenderness to palpation in all 4 quadrants of the abdomen. No guarding, rebound, or rigidity. Negative [place] sign. No erythema or ecchymosis. Normal bowel sounds are audible. No tenderness on palpation of McBurney's point. Extremities: No clubbing, cyanosis, or edema. 2+ pulses in all 4 extremities. No shortening or external rotation of her extremities. No deformity of her extremities is noted. The patient has no pain with range of motion of her left arm including her elbow, wrist, hand and fingers. The patient has intact sensation over all fingertips. The patient has less than 3 second capillary refill. The other area of interest is the left hip. The patient has no pain with flexion of the hip, however internal and external rotation causes pain in the left groin. The patient has a 2+ pulse in the dorsalis pedis. The patient has less than 3 second capillary refill of her digits. Back: No spinous process tenderness to palpation. No costovertebral angle tenderness to palpation. Neurologic Exam: Cranial nerves 2-12 were intact on exam. Strength is 5/5 in all 4 extremities. No sensory deficits noted. Skin Exam: No rash noted. The patient is noted on examination of the left arm to have a 7 cm laceration just above the elbow along the medial aspect of the left arm that is through the fatty tissue. There is no visible tendon involvement. No foreign bodies visualized. The patient consents to repair of the laceration. Data Data Last Documented VS Vital Signs Date Time Temp Pulse Resp B/P Pulse Ox O2 Delivery O2 Flow Rate FiO2 02/19/17 23:48 97 Room Air 02/19/17 23:30 95 18 02/19/17 23:26 98.3 189/73 Orders Electrocardiogram (02/19/17 23:40) Complete Blood Count With Diff (02/19/17 23:40) Comprehensive Metabolic Panel (02/19/17 23:40) Prothrombin Time / Inr (Pt) (02/19/17 23:40) Act Partial Throm Time (Ptt) (02/19/17 23:40) Chest, Single Ap (02/19/17 23:40) Iv Access Insert/Monitor (02/19/17 23:40) Ecg Monitoring (02/19/17 23:40) Oximetry (02/19/17 23:40) Hip, Uni(Ap&Lat) W Ap Pelvis (02/19/17 23:40) Lidocai-Epi 1%-1:100,000 Inj (Xylocaine- (02/19/17 23:45) Ct Brain W/O Iv Contrast(Rout) (02/20/17 01:15) Ct Abd/Pel W/O Iv Contrast (02/20/17 01:15) Admit Order (Ed Use Only) (02/20/17 01:40) Labs Laboratory Tests Test 02/19/17 23:52 White Blood Count 12.1 TH/MM3 Red Blood Count 4.86 MIL/MM3 Hemoglobin 15.0 GM/DL Hematocrit 44.5 % Mean Corpuscular Volume 91.6 FL Mean Corpuscular Hemoglobin 30.9 PG Mean Corpuscular Hemoglobin 33.8 % Concent Red Cell Distribution Width 14.3 % Platelet Count 183 TH/MM3 Mean Platelet Volume 8.7 FL Neutrophils (%) (Auto) 65.8 % Lymphocytes (%) (Auto) 24.8 % Monocytes (%) (Auto) 8.4 % Eosinophils (%) (Auto) 0.3 % Basophils (%) (Auto) 0.7 % Neutrophils # (Auto) 8.0 TH/MM3 Lymphocytes # (Auto) 3.0 TH/MM3 Monocytes # (Auto) 1.0 TH/MM3 Eosinophils # (Auto) 0.0 TH/MM3 Basophils # (Auto) 0.1 TH/MM3 CBC Comment DIFF FINAL Differential Comment Prothrombin Time 22.7 SEC Prothromb Time International 2.0 RATIO Ratio Activated Partial 32.6 SEC Thromboplast Time Sodium Level 141 MEQ/L Potassium Level 4.0 MEQ/L Chloride Level 104 MEQ/L Carbon Dioxide Level 30.3 MEQ/L Anion Gap 7 MEQ/L Blood Urea Nitrogen 13 MG/DL Creatinine 0.89 MG/DL Estimat Glomerular Filtration 61 ML/MIN Rate Random Glucose 92 MG/DL Calcium Level 9.1 MG/DL Total Bilirubin 0.8 MG/DL Aspartate Amino Transf 47 U/L (AST/SGOT) Alanine Aminotransferase 40 U/L (ALT/SGPT) Alkaline Phosphatase 121 U/L Total Protein 7.3 GM/DL Albumin 3.9 GM/DL [facility] Medical Decision Making Medical Screen Exam Complete: Yes Emergency Medical Condition: Yes Medical Record Reviewed: Yes Interpretation(s) Last Impressions Head CT 02/20/17114 Signed Impressions: Service Date/Time: Monday, February 20, 2017 02:07 - CONCLUSION: Negative noncontrast CT brain. George Cain MD Abdomen/Pelvis CT 02/20/17114 Signed Impressions: Service Date/Time: Monday, February 20, 2017 02:09 - CONCLUSION: 1. Left symphysis pubis fracture extends to the superior and inferior pubic ramus. There is a mild surrounding soft tissue edema. 2. Patchy infiltrates in the right lower lung. George Cain MD Hip and Pelvis X-Ray 02/19/172339 Signed Impressions: Service Date/Time: Sunday, February 19, 2017 23:51 - CONCLUSION: Mildly displaced fracture of the left superior pubic ramus with associated butterfly fragment. George Cain MD Chest X-Ray 02/19/172339 Signed Impressions: Service Date/Time: Sunday, February 19, 2017 23:54 - CONCLUSION: Stable infiltrates bilateral apices and right lower lung. No pneumothorax seen. George Cain MD Differential Diagnosis Left hip fracture, versus dislocation, versus pelvic fracture, versus musculoskeletal strain, versus laceration Narrative Course During the course of the patients emergency department visit, the patients history, examination, and differential diagnosis were reviewed with the patient. The patient had IV access obtained and blood work sent for analysis. The patient placed on a quality assurance monitor with oximetry and blood pressure monitoring. An EKG will be done. The patient consented for repair of her laceration. The patient reports that her tetanus was updated in 2014. A chest x-ray, pelvic x-ray, left hip x-ray has been ordered. Tory, the nurse practitioner was consultative regarding wound irrigation and laceration repair. The patients laboratory studies were reviewed and remarkable for a CMP that is remarkable for GFR 61, AST 47, alkaline phosphatase 121, PTT 22.7, INR 2, PTT 32.6, CBC is remarkable for a white count of 12.1, hemoglobin 15, platelets 183 with 8.4 monocytes. Radiology studies were reviewed and remarkable for a chest x-ray that shows stable infiltrates bilateral apices and right lower lung, no pneumothorax. Pelvis and hip x-ray revealed a mildly displaced fracture of the left superior pubic ramus with an associated butterfly fragment. CT scan of the brain shows no acute abnormality. CT scan of the abdomen and pelvis shows a left symphysis pubis ramus fracture that extends to the superior and inferior pubic ramus. There is mild surrounding soft tissue edema. Patchy infiltrates in the right lower lung. The patients results were discussed with the patient, including the plan of care. I explained that further testing and/ or monitoring is indicated based on the patients history, examination, and/ or laboratory findings. Therefore, I recommended admission for additional evaluation. The patient expressed understanding and was agreeable with this plan. The patient was admitted to the hospital in stable condition and [facility] Physician Communication Physician Communication The patient's case is discussed with Dr. Green who did agree to admit the patient for further evaluation and treatment at this time. Diagnosis Primary Impression: Fall Qualified Code: W19.XXXA - Fall, initial encounter Additional Impressions: Laceration of left upper arm Qualified Code: S41.112A - Laceration of left upper arm, initial encounter Fracture of pelvis Qualified Code: S32.502A - Closed fracture of left pubis, unspecified portion of pubis, initial encounter Admitting Information Admitting Physician Requests: Admit Araceli Maguire MD Feb 19, 2017 23:48
[2017-02-20] VITALS (8 sets, daily range): BP systolic 112–141; BP diastolic 47–76; PULSE 84–115; RESP 16–18; TEMP 96.5–98.4; O2SAT 96–100
[2017-02-20 00:08] LABS: BASOPHIL # 0.1 TH/MM3 (0-0.2); BASOPHIL % 0.7 % (0.0-2.0); EOSINOPHIL % 0.3 % (0.0-4.0); HEMATOCRIT 44.5 % (35.0-46.0); HEMO FLAGS DIFF FINAL; LYMPH % 24.8 % (9.0-44.0); MEAN CELL VOLUME 91.6 FL (80.0-100.0); MEAN CORPUSCULAR HEMOGLOBIN 30.9 PG (27.0-34.0); MEAN CORPUSCULAR HGB CONC 33.8 % (32.0-36.0); MONO % 8.4 % (0.0-8.0); NEUT % 65.8 % (16.0-70.0); PLATELET COUNT 183 TH/MM3 (150-450); RED BLOOD COUNT 4.86 MIL/MM3 (4.00-5.30); RED CELL DISTRIBUTION WIDTH 14.3 % (11.6-17.2); WHITE BLOOD COUNT 12.1 TH/MM3 (4.0-11.0)
[2017-02-20 00:18] LABS: APTT (PATIENT) 32.6 SEC (24.3-30.1); PROTHROMBIN TIME - PATIENT 22.7 SEC (9.8-11.6)
--- NOTE | 2017-02-20 00:19 | RADRPT ---
EXAM DATE/TIME: 02/19/2017 23:51 [facility] COMPARISON: No previous studies available for comparison. INDICATIONS : Trauma, fall. MEDICAL HISTORY : None. SURGICAL HISTORY : None. ENCOUNTER: Initial ACUITY: 1 day PAIN SCORE: 4/10 LOCATION: Left pelvis hip. FINDINGS: There is a fracture of the left superior pubic ramus near the symphysis pubis with a mildly displaced fragment superior. The left ischial tuberosity is intact. The left femoral head and neck is intact . The arcuate lines of the sacrum are symmetrical. Severe joint space loss superomedial right hip. Multiple calcified phleboliths in the pelvis. CONCLUSION: Mildly displaced fracture of the left superior pubic ramus with associated butterfly fragment. George Cain MD on February 20, 2017 at 0:16 Board Certified Radiologist. This report was verified electronically.
--- NOTE | 2017-02-20 00:22 | RADRPT ---
EXAM DATE/TIME: 02/19/2017 23:54 [facility] COMPARISON: CT THORAX W/O CONTRAST, November 27, 2016, 16:34. INDICATIONS : Trauma, fall. MEDICAL HISTORY : Cardiovascular disease. Chronic obstructive pulmonary disease. SURGICAL HISTORY : None. ENCOUNTER: Initial ACUITY: 1 day PAIN SCORE: 0/10 LOCATION: Bilateral chest FINDINGS: The lungs are hyperaerated. Infiltrates in the apices bilaterally and at the right base are similar to prior CT scan November 2016. No evidence of pneumothorax. The heart is normal in size. Both hemidi aphragms are well delineated. CONCLUSION: Stable infiltrates bilateral apices and right lower lung. No pneumothorax seen. George Cain MD on February 20, 2017 at 0:19 Board Certified Radiologist. This report was verified electronically.
[2017-02-20 00:46] LABS: ALKALINE PHOSPHATASE 121 U/L (45-117); TOTAL BILIRUBIN ADULT 0.8 MG/DL (0.2-1.0)
[2017-02-20 00:52] LABS: ALT (GPT) 40 U/L (10-53); ANION GAP 7 MEQ/L (5-15); AST (GOT) 47 U/L (15-37); BICARBONATE 30.3 MEQ/L (21.0-32.0); BLOOD UREA NITROGEN 13 MG/DL (7-18); CHLORIDE 104 MEQ/L (98-107); GLOMERULAR FILTRATION RATE 61 ML/MIN (>89); SODIUM (NA) 141 MEQ/L (136-145)
[2017-02-20] MEDS ORDERED: ACETAMINOPHEN 325 MG TAB PO ONE (02:00)
[2017-02-20] MEDS ORDERED: WARFARIN SOD 5 MG TAB PO SCH (02:00)
[2017-02-20] MEDS ORDERED: TH GCAP PO (02:52)
[2017-02-20] MEDS ORDERED: ACET-822 PO (02:52)
[2017-02-20] MEDS ORDERED: VITA250T3 PO (02:52)
[2017-02-20] MEDS ORDERED: ATEN25TA PO (02:52)
[2017-02-20] MEDS ORDERED: VITATAB11 PO (02:52)
--- NOTE | 2017-02-20 03:32 | RADRPT ---
EXAM DATE/TIME: 02/20/2017 02:07 [facility] COMPARISON: No previous studies available for comparison. INDICATIONS : Trauma, fall. RADIATION DOSE: 56.35 CTDIvol (mGy) MEDICAL HISTORY : Chronic obstructive pulmonary disease. A-fib. SURGICAL HISTORY : None. ENCOUNTER: Initial ACUITY: 1 day PAIN SCALE: 0/10 LOCATION: cranial TECHNIQUE: Multiple contiguous axial images were obtained of the head. Using automated exposure control and adj ustment of the mA and/or kV according to patient size, radiation dose was kept as low as reasonably a chievable to obtain optimal diagnostic quality images. DICOM format image data is available electro nically for review and comparison. FINDINGS: CEREBRUM: The ventricles are normal for age. No evidence of midline shift, mass lesion, hemorrhage or acute in farction. No extra-axial fluid collections are seen. POSTERIOR FOSSA: The cerebellum and brainstem are intact. The 4th ventricle is midline. The cerebellopontine angle i s unremarkable. EXTRACRANIAL: The visualized portion of the orbits is intact. SKULL: The calvaria is intact. No evidence of skull fracture. CONCLUSION: Negative noncontrast CT brain. George Cain MD on February 20, 2017 at 3:30 Board Certified Radiologist. This report was verified electronically.
--- NOTE | 2017-02-20 03:43 | RADRPT ---
EXAM DATE/TIME: 02/20/2017 02:09 [facility] COMPARISON: HIP LEFT (AP&LAT 2/3VWS) W AP PELVIS, February 19, 2017, 23:51. INDICATIONS : Trauma, fall. Pelvic pain. ORAL CONTRAST: No oral contrast ingested. RADIATION DOSE: 7.04 CTDIvol (mGy) MEDICAL HISTORY : Hypertension. Hernia, hiatal. Renal calculi.A-fib. SURGICAL HISTORY : Cholecystectomy. Hysterectomy.Lumpectomy. Bowel resection. ENCOUNTER: Initial ACUITY: 1 day PAIN SCALE: 6/10 LOCATION: Bilateral lower quadrant TECHNIQUE: Volumetric scanning of the abdomen and pelvis was performed. Using automated exposure control and ad justment of the mA and/or kV according to patient size, radiation dose was kept as low as reasonably achievable to obtain optimal diagnostic quality images. DICOM format image data is available electro nically for review and comparison. FINDINGS: LOWER LUNGS: Patchy irregular shape there is an infiltrate present at the right base adjacent to the hemidiaphragm . No evidence of pleural effusion. LIVER: Homogeneous density without lesion for noncontrast technique. There is no dilation of the biliary tr ee. Cholecystectomy.. SPLEEN: Normal size without lesion. PANCREAS: Within normal limits. KIDNEYS: Normal in size and shape. There is no mass, stone, or hydronephrosis. 1.5 cm exophytic cyst from th e lower lateral midpole of the left kidney ADRENAL GLANDS: Within normal limits. VASCULAR: There is no aortic aneurysm. BOWEL/MESENTERY: No dilated loops of small or large bowel. Anastomosis suture in the right lower abdomen. No evidenc e of free fluid. ABDOMINAL WALL: Within normal limits. RETROPERITONEUM: There is no lymphadenopathy. BLADDER: No wall thickening or mass. REPRODUCTIVE: Within normal limits. INGUINAL: There is no lymphadenopathy or hernia. MUSCULOSKELETAL: Fracture of the left symphysis pubis with extension to both the superior and inferior pubic ramus. T he remainder of the bony pelvic ring is intact. Advanced osteoarthritic change of the right hip with subchondral cysts both in the acetabulum and superior femoral head. CONCLUSION: 1. Left symphysis pubis fracture extends to the superior and inferior pubic ramus. There is a mild s urrounding soft tissue edema. 2. Patchy infiltrates in the right lower lung. George Cain MD on February 20, 2017 at 3:31 Board Certified Radiologist. This report was verified electronically.
[2017-02-20] MEDS ORDERED: PROPOFOL 200 MG/20 ML AMP IV ONE (08:22)
[2017-02-20] MEDS ORDERED: PHENYLEPH/NS 1000 MCG/10 ML SYR IV ONE (08:22)
[2017-02-20] MEDS ORDERED: ONDANSETRON HCL 4 MG/2 ML VIAL IV PUSH ONE (08:24)
[2017-02-20] MEDS ORDERED: PHYTONADIONE 5 MG TAB PO ONE (08:30)
[2017-02-20] MEDS ORDERED: traMADol HCL 50 MG TAB PO PRN (08:30)
[2017-02-20] MEDS ORDERED: ACETAMINOPHEN 325 MG TAB PO PRN (08:30)
[2017-02-20] MEDS: RESP: IPRATROPIUM 0.5 MG/2.5 ML NEB NEB SCH ×2 (08:40→20:00)
[2017-02-20] MEDS ORDERED: METOPROLOL TARTRATE 50 MG TAB PO SCH (09:00)
[2017-02-20] MEDS: BUDESONIDE-FORMOTEROL 160/4.5 MCG INHALER INH SCH ×2 (09:00→21:00)
[2017-02-20] MEDS ORDERED: LUTEIN PO SCH (09:00)
[2017-02-20] MEDS ORDERED: NATURAL PRODUCTS PO SCH (09:00)
[2017-02-20] MEDS: LACTOBACILLUS ACIDOPHILUS TAB PO SCH (09:00)
[2017-02-20] MEDS ORDERED: OMEGA PO SCH (09:00)
[2017-02-20] MEDS ORDERED: IPRATROPIUM BROMIDE 17 MCG/ACT 12.9 GM INHALER INH SCH (09:00)
[2017-02-20] MEDS: VITAMIN B COMPLEX/VIT C TAB PO SCH (09:00)
[2017-02-20] MEDS: LORATADINE 10 MG TAB PO SCH (09:00)
[2017-02-20] MEDS: CALCIUM/VITAMIN D 250 MG/125 U TAB PO SCH (09:00)
[2017-02-20] MEDS ORDERED: FATTY ACIDS PO SCH (09:00)
[2017-02-20] MEDS ORDERED: PHYTONADIONE 10 MG/ML VIAL SQ STA (09:09)
--- NOTE | 2017-02-20 09:39 | HHI.HP ---
HPI Service [facility] Hospitalists Primary Care Physician Neeru Diaz MD Admission Diagnosis Pelvis fracture s/p fall Chief Complaint: Pelvic pain, bleeding from LUE Travel History International Travel<30 Days: No Contact w/Intl Traveler <30 Da: No Traveled to Known Affected Are: No History of Present Illness Ms. Keith is an 80 y/o WF with asthma, COPD, paroxysmal atrial fibrillation on chronic anticoagulation with Coumadin, HTN, pulmonary HTN, and recent pneumonia in 11/2016. She presented to the ED at [facility] on 02/19/17 after reportedly tripping and falling on a carpet at home and landed on her left arm and left hip. The patient sustained a 7 cm laceration to the medial aspect of the left arm near the elbow and complained of having left hip pain. She has full range of motion of the left arm without any bony tenderness reported. She denies having any loss of consciousness. The patient is chronically anticoagulated on Coumadin related to atrial fibrillation and INR in the ED was 2. Imaging studies revealed left symphysis pubis fracture extends to the superior and inferior pubic ramus with mild surrounding soft tissue edema and patchy infiltrates in the right lower lung. Sutures were placed in the pts LUE for laceration repair. Today, she has had bleeding/oozing from the sutures in the LUE and increased swelling and bruising, likely from hematoma formation. She has good pulses in the left wrist and the extremity is warm with good capillary refill. She denies having any chest pain, chest pressure, shortness of breath, abdominal pain. She denies having any numbness or tingling to her extremities, weakness of her extremities, recent fevers, congestion, vomiting, diarrhea, or urinary symptoms. Review of Systems Constitutional: DENIES: Fever, Chills Eyes: DENIES: Vision loss Ears, nose, mouth, throat: DENIES: Hearing loss Respiratory: COMPLAINS OF: Cough (occasinal cough), Sputum production Cardiovascular: DENIES: Chest pain, Palpitations, Lower Extremity Edema Gastrointestinal: DENIES: Abdominal pain, Diarrhea, Nausea, Vomiting Genitourinary: DENIES: Urgency, Hematuria Musculoskeletal: COMPLAINS OF: Joint pain Hematologic/lymphatic: COMPLAINS OF: Bruising Neurologic: DENIES: Headache, Localized weakness, Paresthesias Psychiatric: DENIES: Confusion Past Family Social History Past Medical History Pneumonia in 11/2016 A. fib on chronic anticoagulation with Coumadin COPD Asthma Recurrent bladder infections, follows with Dr. Brownlee Hx of bowel obstruction Osteoarthritis Past Surgical History Cholecystectomy Lumpectomy, negative for malignancy NILDA + BSO (08/1977) Plastic internal urethrotomy (02/2013) Small bowel resection secondary to obstruction (10/2011) Reported Medications Atenolol 25 Mg Tab 25 Mg PO BID Vitamin C (Ascorbic Acid) 250 Mg Tab 500 Mg PO DAILY Vitamin B Complex (B-Complex Vitamins) 1 Tab 1 Cap PO DAILY Tylenol Extra Strength (Acetaminophen) 500 Mg Tablet 360 Mg PO Q6HR Glucosamine & Chondroitin Cap (Glucosam/Chondr/Collagn/Hyalur) 1 Each Capsule 1 Cap PO BID Lutein Unknown Strength Tab 1 Tab PO DAILY Probiotic (Probiotic Product) 1 Tab Tab 1 Tab PO DAILY [place]-3 Fish Oil 1000 mg ([place]-3 Fatty Acids) 1 Cap Cap 1,000 Mg PO DAILY Glucosamine-Chondroitin (Misc Natural Products) 1 Cap 1 Cap PO BID Jerri Allergy (Fexofenadine HCl) 180 Mg Tab 180 Mg PO DAILY Coumadin (Warfarin) 5 Mg Tab 2.5 Mg PO SUMOWEFR Take 1/2 tablet (2.5mg) on Saturday,Saturday,Saturday, and SATURDAY Coumadin (Warfarin) 5 Mg Tab 5 Mg PO Take 1 tablet (5mg) on Saturday and Saturday Atrovent HFA 12.9 GM Inh (Ipratropium [place]) 17 Mcg/Act Aer 2 Puff INH BID Advair Diskus Inh (Fluticasone-Salmeterol Inh) 250-50 Mcg/Blist Aer 1 Puff INH BID Rinse mouth after use. Allergies: Coded Allergies: Aspirin (Verified Allergy, Severe, 02/19/17) Bextra (Verified Allergy, Severe, 02/19/17) Celebrex (Verified Allergy, Severe, 02/19/17) Darvocet-N 100 (Verified Allergy, Severe, 02/19/17) Ibuprofen (Verified Allergy, Severe, 02/19/17) Oxycodone (Verified Allergy, Severe, 02/19/17) Parafon Forte (Verified Allergy, Severe, 02/19/17) Paroxetine (Verified Allergy, Severe, 02/19/17) Paxil (Verified Allergy, Severe, 02/19/17) Penicillin (Verified Allergy, Severe, 02/19/17) Percocet (Verified Allergy, Severe, 02/19/17) Prilosec (Verified Allergy, Severe, 02/19/17) Robaxin (Verified Allergy, Severe, 02/19/17) Salsalate (Verified Allergy, Severe, 02/19/17) Sulfa (Verified Allergy, Severe, 02/19/17) Temazepam (Verified Allergy, Severe, 02/19/17) Metoprolol (Verified Allergy, Intermediate, Dizziness, 02/20/17) Amoxicillin (Verified Allergy, Unknown, 02/19/17) Clindamycin (Verified Allergy, Unknown, 02/19/17) Ofloxacin (Verified Allergy, Unknown, 02/19/17) Toprol Xl (Verified Allergy, Unknown, 02/19/17) Vancenase (Verified Allergy, Unknown, 02/19/17) Uncoded Allergies: CLINORIL (Allergy, Severe, 11/12/11) Family History Father with hx of DM Mother with hx of liver cirrhosis (no EtOH abuse) Social History Occasional alcohol use, one glass of wine three times per week, but none for the last few weeks Denies any hx of tobacco use but she was exposed to second hand smoke for several years Denies any hx of illicit drug use Physical Exam Vital Signs Vital Signs Date Time Temp Pulse Resp B/P Pulse Ox O2 Delivery O2 Flow Rate FiO2 02/20/17 03:40 97.6 115 16 141/73 97 02/20/17 02:56 98.4 98 18 135/76 100 Room Air 02/19/17 23:48 97 Room Air 02/19/17 23:30 95 18 95 Room Air 02/19/17 23:26 98.3 95 18 189/73 95 Physical Exam GENERAL: This is a well-nourished, well-developed patient, in no apparent distress. SKIN: Multiple areas of ecchymoses on the extremities. HEENT: Atraumatic. Normocephalic. No temporal or scalp tenderness. No scleral icterus. Airway patent. NECK: Trachea midline, supple, nontender CARDIO: Regular. RESP: CTA bilaterally. No wheezes, rales, or rhonchi. ABD: +BS, soft, non-tender, nondistended. EXT: LUE hematoma with oozing blood from the sutures in the medial aspect, good pulses and 2 sec cap refill in all digits on the LUE. NEURO: Awake and alert. Motor and sensory grossly within normal limits. Normal speech. Laboratory Laboratory Tests Test 02/19/17 23:52 White Blood Count 12.1 Red Blood Count 4.86 Hemoglobin 15.0 Hematocrit 44.5 Mean Corpuscular Volume 91.6 Mean Corpuscular Hemoglobin 30.9 Mean Corpuscular Hemoglobin 33.8 Concent Red Cell Distribution Width 14.3 Platelet Count 183 Mean Platelet Volume 8.7 Neutrophils (%) (Auto) 65.8 Lymphocytes (%) (Auto) 24.8 Monocytes (%) (Auto) 8.4 Eosinophils (%) (Auto) 0.3 Basophils (%) (Auto) 0.7 Neutrophils # (Auto) 8.0 Lymphocytes # (Auto) 3.0 Monocytes # (Auto) 1.0 Eosinophils # (Auto) 0.0 Basophils # (Auto) 0.1 CBC Comment DIFF FINAL Differential Comment Prothrombin Time 22.7 Prothromb Time International 2.0 Ratio Activated Partial 32.6 Thromboplast Time Sodium Level 141 Potassium Level 4.0 Chloride Level 104 Carbon Dioxide Level 30.3 Anion Gap 7 Blood Urea Nitrogen 13 Creatinine 0.89 Estimat Glomerular Filtration 61 Rate Random Glucose 92 Calcium Level 9.1 Total Bilirubin 0.8 Aspartate Amino Transf 47 (AST/SGOT) Alanine Aminotransferase 40 (ALT/SGPT) Alkaline Phosphatase 121 Total Protein 7.3 Albumin 3.9 Result Diagram: 02/19/17235102/19/172351 Imaging Last Impressions Head CT 02/20/17114 Signed Impressions: Service Date/Time: Monday, February 20, 2017 02:07 - CONCLUSION: Negative noncontrast CT brain. George Cain MD Abdomen/Pelvis CT 02/20/17114 Signed Impressions: Service Date/Time: Monday, February 20, 2017 02:09 - CONCLUSION: 1. Left symphysis pubis fracture extends to the superior and inferior pubic ramus. There is a mild surrounding soft tissue edema. 2. Patchy infiltrates in the right lower lung. George Cain MD Hip and Pelvis X-Ray 02/19/172339 Signed Impressions: Service Date/Time: Sunday, February 19, 2017 23:51 - CONCLUSION: Mildly displaced fracture of the left superior pubic ramus with associated butterfly fragment. George Cain MD Chest X-Ray 02/19/17 6420 Signed Impressions: Service Date/Time: Sunday, February 19, 2017 23:54 - CONCLUSION: Stable infiltrates bilateral apices and right lower lung. No pneumothorax seen. George Cain MD Septic Shock Reassessment Heart: Regular rate and rhythm Lungs: Clear Skin: Warm Assessment and Plan Problem List: (1) Fall Status: Acute Plan: - Pt is an 81 y/o with asthma, COPD, paroxysmal atrial fibrillation on chronic anticoagulation with Coumadin, HTN, and recent pneumonia in 11/2016. - Pt presented to the ED on 02/19/17 after a trip and fall at home - She on a carpet at home and landed on her left arm and left hip. She sustained a 7 cm laceration to the medial aspect of the left arm near the elbow and complained of having left hip pain. - Imaging studies revealed left symphysis pubis fracture extends to the superior and inferior pubic ramus with mild surrounding soft tissue edema and patchy infiltrates in the right lower lung. - Sutures were placed in the pts LUE for laceration repair in the ED. Today, she has had bleeding/oozing from the sutures in the LUE and increased swelling and bruising, likely from hematoma formation. She has good pulses in the left wrist and the extremity is warm with good capillary refill. - The patient is chronically anticoagulated on Coumadin related to atrial fibrillation and INR in the ED was 2. - Stat Vitamin K IV and po ordered this morning to try to reverse INR - Coumadin held - Pressure dressing applied to the LUE - ICE - Elevated LUE - Nursing staff instructed to check pulses and cap refill in the LUE/hand every hour - General Surgery consulted for any further recommendations regarding the hematoma. - PT evaluation tomorrow - At the end of this hospitalization the pt will need SNF placement for rehab efforts for the pelvic fractures - Monitor labs closely - Constipation precautions. - Supportive care (2) Laceration of left upper arm Status: Acute Plan: - See above. (3) Fracture of pelvis Status: Acute Plan: - See above. (4) Atrial fibrillation Status: Chronic Plan: - Coumadin held due to bleeding in the LUE - INR to be reversed STAT today - Monitor labs - Pt takes Atenolol 12.5mg po BID at home (5) COPD (chronic obstructive pulmonary disease) Status: Chronic Plan: - Home meds continued - Duonebs Assessment and Plan Patient examined. Assessment and plan formulated with Stephanie Plascencia PA-C. I agree with the above. pelvic fx. left arm lac sutured. on coumadin. bleeding overnight and now with large hematoma and sutures may not hold. had gen surg eval. reverse coags and taking to OR for evacuation today. will need snf. Physician Certification 2 Midnight Certification Type: Admission for Inpatient Services Order for Inpatient Services The services are ordered in accordance with Medicare regulations or non- Medicare payer requirements, as applicable. In the case of services not specified as inpatient-only, they are appropriately provided as inpatient services in accordance with the 2-midnight benchmark. Estimated LOS (days): 3 3 days is the estimated time the patient will need to remain in the hospital, assuming treatment plan goals are met and no additional complications. Post-Hospital Plan: SNF Problem Qualifiers (1) Fall: Qualified Code: W19.XXXA - Fall, initial encounter (2) Laceration of left upper arm: Qualified Code: S41.112A - Laceration of left upper arm, initial encounter (3) Fracture of pelvis: Qualified Code: S32.502A - Closed fracture of left pubis, unspecified portion of pubis, initial encounter (4) Atrial fibrillation: Qualified Code: I48.0 - Paroxysmal atrial fibrillation Stephanie Plascencia Feb 20, 2017 09:39 Renzo Figueroa MD Feb 20, 2017 13:43
[2017-02-20] MEDS ORDERED: MAGNESIUM HYDROXIDE SUSP 30 ML CUP PO PRN ×2 (10:00→19:00)
[2017-02-20] MEDS: DOCUSATE SODIUM 50 MG/SENNA 8.6 MG TAB PO SCH ×2 (10:00→21:30)
[2017-02-20] MEDS ORDERED: SENNOSIDES 8.6 MG TAB PO PRN (10:00)
[2017-02-20] MEDS ORDERED: BISACODYL 10 MG SUPP RECTAL PRN (10:00)
[2017-02-20] MEDS ORDERED: SODIUM CHLOR 0.9% 1000 ML INJ 1,000 ML IV SCH (11:45)
[2017-02-20] MEDS ORDERED: INSULIN HUMAN REGULAR 1,000 UNITS/10 ML VIAL SQ PRN (11:45)
[2017-02-20] MEDS ORDERED: LACTATED RINGER'S 1000 ML IV PRN (11:45)
[2017-02-20] MEDS ORDERED: POVIDONE IODINE 5% (ANTISEPSIS KIT) 4 APPLICATIONS EACH NARE PRN (11:45)
[2017-02-20] MEDS ORDERED: CHLORHEXIDINE GLUCONATE 2 % 1 PACK (2 CLOTHS) TOPICAL PRN (11:45)
[2017-02-20] MEDS ORDERED: SODIUM CHLORID 0.9% 500 ML IV PRN (11:45)
[2017-02-20] MEDS: ATENOLOL 25 MG TAB PO SCH ×2 (14:17→21:30)
[2017-02-20] MEDS ORDERED: WARFARIN SOD 2.5 MG TAB PO SCH (16:00)
[2017-02-20] MEDS ORDERED: LIDOCAINE 1%/EPINEPHrine 1:100,000 SOLN 20 ML VIAL ONE (16:01)
[2017-02-20] MEDS ORDERED: GENTAMICIN SULFATE 80 MG/2 ML VIAL ONE ×2 (16:01→17:57)
[2017-02-20] MEDS ORDERED: VANCOMYCIN 500 MG VIAL ONE (18:13)
[2017-02-20] MEDS ORDERED: SODIUM CHLORIDE 0.9% FLUSH 10 ML FLUSH IV FLUSH PRN (19:00)
[2017-02-20] MEDS ORDERED: Post-op Orders (for Pharmacy) MISC XX ONE (19:00)
[2017-02-20] MEDS ORDERED: MORPHINE SULFATE 4 MG/ML INJ ONE (19:40)
[2017-02-20] MEDS ORDERED: DO NOT ADM ANY ANTICOAGULANT DRUGS PRN (20:00)
[2017-02-20] MEDS: SODIUM CHLORIDE 0.9% FLUSH 10 ML FLUSH IV FLUSH SCH (21:00)
[2017-02-20] MEDS: DOCUSATE SODIUM 100 MG CAP PO SCH (21:30)
[2017-02-20] MEDS: SODIUM CHLOR 0.9% 1000 ML INJ 1,000 ML IV SCH (21:33)
--- NOTE | 2017-02-20 23:13 | EKG ---
Date Performed: 02/20/2017 Time Performed: 00:24:17 PTAGE: 81 years EKG: ATRIAL FIBRILLATION WITH RAPID VENTRICULAR RESPONSE ABNORMAL RHYTHM ECG PREVIOUS TRACING : 11/14/2011 08.27 Compared to the previous tracing SR NO LONGER PRESENT DOCTOR: Rachel Drew Interpretating Date/Time 02/20/2017 23:13:05
[2017-02-21] VITALS (13 sets, daily range): BP systolic 89–123; BP diastolic 42–67; PULSE 80–112; RESP 16–20; TEMP 95.9–98; O2SAT 96–97
[2017-02-21] MEDS: ACETAMINOPHEN 325 MG TAB PO PRN ×4 (03:14→20:36)
[2017-02-21 06:19] LABS: BASOPHIL % 0.3 % (0.0-2.0); EOSINOPHIL # 0.1 TH/MM3 (0-0.4); EOSINOPHIL % 0.7 % (0.0-4.0); HEMATOCRIT 30.8 % (35.0-46.0); HEMO FLAGS DIFF FINAL; LYMPH % 29.9 % (9.0-44.0); LYMPHOCYTE # 3.1 TH/MM3 (1.0-4.8); MEAN CELL VOLUME 91.8 FL (80.0-100.0); MEAN CORPUSCULAR HEMOGLOBIN 31.5 PG (27.0-34.0); MEAN CORPUSCULAR HGB CONC 34.3 % (32.0-36.0); MONO % 11.1 % (0.0-8.0); PLATELET COUNT 126 TH/MM3 (150-450); RED BLOOD COUNT 3.36 MIL/MM3 (4.00-5.30); RED CELL DISTRIBUTION WIDTH 13.8 % (11.6-17.2); WHITE BLOOD COUNT 10.4 TH/MM3 (4.0-11.0)
[2017-02-21 06:27] LABS: INTERNATIONAL NORMALIZED RATIO 1.6 RATIO; PROTHROMBIN TIME - PATIENT 18.3 SEC (9.8-11.6)
[2017-02-21 06:59] LABS: MAGNESIUM 1.7 MG/DL (1.5-2.5); POTASSIUM 3.7 MEQ/L (3.5-5.1)
[2017-02-21] MEDS: RESP: IPRATROPIUM 0.5 MG/2.5 ML NEB NEB SCH ×2 (08:07→20:47)
[2017-02-21] MEDS: CALCIUM/VITAMIN D 250 MG/125 U TAB PO SCH (08:44)
[2017-02-21] MEDS: ATENOLOL 25 MG TAB PO SCH ×2 (08:45→20:28)
[2017-02-21] MEDS: LACTOBACILLUS ACIDOPHILUS TAB PO SCH (08:45)
[2017-02-21] MEDS: VITAMIN B COMPLEX/VIT C TAB PO SCH (08:45)
[2017-02-21] MEDS: DOCUSATE SODIUM 50 MG/SENNA 8.6 MG TAB PO SCH ×2 (08:45→20:29)
[2017-02-21] MEDS: SODIUM CHLORIDE 0.9% FLUSH 10 ML FLUSH IV FLUSH SCH ×2 (08:45→20:29)
[2017-02-21] MEDS: LORATADINE 10 MG TAB PO SCH (08:46)
[2017-02-21] MEDS: DOCUSATE SODIUM 100 MG CAP PO SCH ×2 (08:46→20:29)
[2017-02-21] MEDS: BUDESONIDE-FORMOTEROL 160/4.5 MCG INHALER INH SCH ×2 (08:48→20:29)
[2017-02-21] MEDS: SODIUM CHLOR 0.9% 1000 ML INJ 1,000 ML IV SCH (08:48)
--- NOTE | 2017-02-21 10:28 | HHI.PR ---
Subjective Remarks doing ok. eating diet Objective Vitals heart reg lung cta abd s/nt ext left arm lac sutured. hematoma evacuated and diffuse ecchymosis. pulse intact. ext no edema Vital Signs Date Time Temp Pulse Resp B/P Pulse Ox O2 Delivery O2 Flow Rate FiO2 02/21/17 08:07 97 21 02/21/17 08:00 95.9 106 20 116/67 97 02/21/17 06:43 80 02/21/17 04:00 97.0 103 18 123/58 97 02/21/17 01:10 91 110/50 02/21/17 00:19 96.9 84 16 89/42 97 02/20/17 23:00 84 02/20/17 21:00 97.1 98 18 113/47 96 02/20/17 21:00 98 02/20/17 20:15 98.0 103 22 126/60 99 Nasal Cannula 3 02/20/17 20:00 119 26 122/61 99 Nasal Cannula 3 02/20/17 19:45 137 17 140/67 98 Nasal Cannula 3 02/20/17 19:30 131 20 149/69 100 Nasal Cannula 3 02/20/17 19:15 119 17 136/69 100 Nasal Cannula 3 02/20/17 19:00 98.0 122 16 122/72 98 Nasal Cannula 3 02/20/17 15:55 97.6 103 16 122/72 98 02/20/17 14:00 105 116/68 02/20/17 12:00 96.9 92 16 117/66 97 02/20/17 10:43 16 02/20/17 02/20/17 02/21/17 15:00 23:00 07:00 Intake Total 480 ml 840 ml 1139 ml Balance 480 ml 840 ml 1139 ml Intake Oral 480 ml 240 ml 250 ml IV Total 889 ml Other 600 ml # Voids 2 1 1 # Bowel Movements 0 0 0 Result Diagram: 02/21/17 0530 02/21/17 0538 Imaging Last Impressions Head CT 02/20/17114 Signed Impressions: Service Date/Time: Monday, February 20, 2017 02:07 - CONCLUSION: Negative noncontrast CT brain. George Cain MD Abdomen/Pelvis CT 02/20/17114 Signed Impressions: Service Date/Time: Monday, February 20, 2017 02:09 - CONCLUSION: 1. Left symphysis pubis fracture extends to the superior and inferior pubic ramus. There is a mild surrounding soft tissue edema. 2. Patchy infiltrates in the right lower lung. George Cain MD Hip and Pelvis X-Ray 02/19/172339 Signed Impressions: Service Date/Time: Sunday, February 19, 2017 23:51 - CONCLUSION: Mildly displaced fracture of the left superior pubic ramus with associated butterfly fragment. George Cain MD Chest X-Ray 02/19/172339 Signed Impressions: Service Date/Time: Sunday, February 19, 2017 23:54 - CONCLUSION: Stable infiltrates bilateral apices and right lower lung. No pneumothorax seen. George Cain MD A/P Problem List: (1) Fall Status: Acute Plan: - Pt is an 81 y/o with asthma, COPD, paroxysmal atrial fibrillation on chronic anticoagulation with Coumadin, HTN, and recent pneumonia in 11/2016. - Pt presented to the ED on 02/19/17 after a trip and fall at home - She on a carpet at home and landed on her left arm and left hip. She sustained a 7 cm laceration to the medial aspect of the left arm near the elbow and complained of having left hip pain. - Imaging studies revealed left symphysis pubis fracture extends to the superior and inferior pubic ramus with mild surrounding soft tissue edema and patchy infiltrates in the right lower lung. - Sutures were placed in the pts LUE for laceration repair in the ED. she has had bleeding/oozing from the sutures in the LUE and increased swelling and bruising, from hematoma formation. She has good pulses in the left wrist and the extremity is warm with good capillary refill. - The patient is chronically anticoagulated on Coumadin related to atrial fibrillation and INR in the ED was 2. - anticoagulation reversed and gen surg consulted for hematoma evacuation and wound closure on 02/20. today pt doing well tolerating diet d/c ivf hold coumadin scd's PT eval consult CM for snf placement tomorrow. - (2) Laceration of left upper arm Status: Acute Plan: - See above. (3) Fracture of pelvis Status: Acute Plan: - See above. (4) Atrial fibrillation Status: Chronic Plan: - see above (5) COPD (chronic obstructive pulmonary disease) Status: Chronic Plan: - Home meds continued - Duonebs Problem Qualifiers (1) Fall: Qualified Code: W19.XXXA - Fall, initial encounter (2) Laceration of left upper arm: Qualified Code: S41.112A - Laceration of left upper arm, initial encounter (3) Fracture of pelvis: Qualified Code: S32.502A - Closed fracture of left pubis, unspecified portion of pubis, initial encounter (4) Atrial fibrillation: Qualified Code: I48.0 - Paroxysmal atrial fibrillation Renzo Figueroa MD Feb 21, 2017 10:28
--- NOTE | 2017-02-21 15:01 | HHI.PR ---
Subjective Subjective Notes 79yo female POD#1 Evacuation of hematoma to left upper extremity. Sitting up in chair in no acute distress. Pain to extremity is better today. Objective Vitals/I&O Vital Signs Date Time Temp Pulse Resp B/P Pulse Ox O2 Delivery O2 Flow Rate FiO2 02/21/17 14:20 98 02/21/17 12:00 97.7 20 108/50 97 02/21/17 08:07 21 02/20/17 20:15 Nasal Cannula 3 Labs Laboratory Tests Test 02/21/17 02/21/17 05:30 05:38 White Blood Count 10.4 Red Blood Count 3.36 Hemoglobin 10.6 Hematocrit 30.8 Mean Corpuscular Volume 91.8 Mean Corpuscular Hemoglobin 31.5 Mean Corpuscular Hemoglobin 34.3 Concent Red Cell Distribution Width 13.8 Platelet Count 126 Mean Platelet Volume 8.7 Neutrophils (%) (Auto) 58.0 Lymphocytes (%) (Auto) 29.9 Monocytes (%) (Auto) 11.1 Eosinophils (%) (Auto) 0.7 Basophils (%) (Auto) 0.3 Neutrophils # (Auto) 6.0 Lymphocytes # (Auto) 3.1 Monocytes # (Auto) 1.1 Eosinophils # (Auto) 0.1 Basophils # (Auto) 0.0 CBC Comment DIFF FINAL Differential Comment Prothrombin Time 18.3 Prothromb Time International 1.6 Ratio Sodium Level 135 Potassium Level 3.7 Chloride Level 103 Carbon Dioxide Level 25.0 Anion Gap 7 Blood Urea Nitrogen 11 Creatinine 0.56 Estimat Glomerular Filtration 103 Rate Random Glucose 95 Calcium Level 7.6 Magnesium Level 1.7 Extremities: Perfused Wound Wound : Wound Location: Left arm Appearance: Clean & Dry A/P Assessment and Plan Ok to discontinue pressure dressing Ok to discharge from surgical standpoint Follow up with my office in 2 weeks Discharge Planning Ok to D/C from a surgical standpoint Alfred Olivo MD Feb 21, 2017 15:01
[2017-02-22] VITALS (7 sets, daily range): BP systolic 105–146; BP diastolic 47–82; PULSE 77–141; RESP 16–18; TEMP 96–97.7; O2SAT 96–99
[2017-02-22] MEDS: ACETAMINOPHEN 325 MG TAB PO PRN ×6 (00:11→23:08)
[2017-02-22] MEDS: RESP: IPRATROPIUM 0.5 MG/2.5 ML NEB NEB SCH ×2 (08:25→19:37)
--- NOTE | 2017-02-22 09:15 | HHI.PR ---
Subjective Remarks left arm overall better. still with some pelvic pain with ambulation Objective Vitals sitting in chair heart reg lung cta abd s/nt ext left arm diffuse ecchymosis left inner arm lac covered in steristrips. distal pulse intace. Vital Signs Date Time Temp Pulse Resp B/P Pulse Ox O2 Delivery O2 Flow Rate FiO2 02/22/17 07:36 96.3 110 17 116/82 98 02/22/17 04:00 96.5 105 18 138/64 96 02/22/17 00:00 96.8 115 16 146/73 98 02/21/17 23:00 96 02/21/17 20:49 96 21 02/21/17 20:00 102 02/21/17 20:00 97.2 112 16 115/61 96 02/21/17 15:51 98.0 85 20 110/56 97 02/21/17 14:20 98 02/21/17 12:00 97.7 87 20 108/50 97 02/21/17 11:16 95 02/21/17 02/21/17 02/22/17 15:00 23:00 07:00 Intake Total 498 ml 240 ml 240 ml Balance 498 ml 240 ml 240 ml Intake Oral 240 ml 240 ml 240 ml IV Total 258 ml # Voids 5 3 3 # Bowel Movements 0 1 1 Result Diagram: 02/21/17 0530 02/21/17 0538 Imaging Last Impressions Head CT 02/20/17114 Signed Impressions: Service Date/Time: Monday, February 20, 2017 02:07 - CONCLUSION: Negative noncontrast CT brain. George Cain MD Abdomen/Pelvis CT 02/20/17114 Signed Impressions: Service Date/Time: Monday, February 20, 2017 02:09 - CONCLUSION: 1. Left symphysis pubis fracture extends to the superior and inferior pubic ramus. There is a mild surrounding soft tissue edema. 2. Patchy infiltrates in the right lower lung. George Cain MD Hip and Pelvis X-Ray 02/19/172339 Signed Impressions: Service Date/Time: Sunday, February 19, 2017 23:51 - CONCLUSION: Mildly displaced fracture of the left superior pubic ramus with associated butterfly fragment. George Cain MD Chest X-Ray 6/27/17 2340 Signed Impressions: Service Date/Time: Sunday, February 19, 2017 23:54 - CONCLUSION: Stable infiltrates bilateral apices and right lower lung. No pneumothorax seen. George Cain MD A/P Problem List: (1) Fall Status: Acute Plan: - Pt is an 81 y/o with asthma, COPD, paroxysmal atrial fibrillation on chronic anticoagulation with Coumadin, HTN, and recent pneumonia in 11/2016. - Pt presented to the ED on 02/19/17 after a trip and fall at home - She on a carpet at home and landed on her left arm and left hip. She sustained a 7 cm laceration to the medial aspect of the left arm near the elbow and complained of having left hip pain. - Imaging studies revealed left symphysis pubis fracture extends to the superior and inferior pubic ramus with mild surrounding soft tissue edema and patchy infiltrates in the right lower lung. - Sutures were placed in the pts LUE for laceration repair in the ED. she has had bleeding/oozing from the sutures in the LUE and increased swelling and bruising, from hematoma formation. She has good pulses in the left wrist and the extremity is warm with good capillary refill. - The patient is chronically anticoagulated on Coumadin related to atrial fibrillation and INR in the ED was 2. - anticoagulation reversed and gen surg consulted for hematoma evacuation and wound closure on 02/20. d/c to snf f/u gen surg 2 weeks decide on coumadin over next several days scd's pain control wbat (2) Laceration of left upper arm Status: Acute Plan: - See above. (3) Fracture of pelvis Status: Acute Plan: - See above. (4) Atrial fibrillation Status: Chronic Plan: - see above (5) COPD (chronic obstructive pulmonary disease) Status: Chronic Plan: - Home meds continued - Duonebs Problem Qualifiers (1) Fall: Qualified Code: W19.XXXA - Fall, initial encounter (2) Laceration of left upper arm: Qualified Code: S41.112A - Laceration of left upper arm, initial encounter (3) Fracture of pelvis: Qualified Code: S32.502A - Closed fracture of left pubis, unspecified portion of pubis, initial encounter (4) Atrial fibrillation: Qualified Code: I48.0 - Paroxysmal atrial fibrillation Renzo Figueroa MD Feb 22, 2017 09:15
[2017-02-22] MEDS ORDERED: ACET1TAB86 PO (09:16)
--- NOTE | 2017-02-22 09:17 | HHI.DCPOC ---
Discharge Care Plan Diagnosis: (1) Fracture of pelvis (2) Laceration of left upper arm (3) COPD (chronic obstructive pulmonary disease) (4) Atrial fibrillation Goals to Promote Your Health * To prevent worsening of your condition and complications * To maintain your health at the optimal level Directions to Meet Your Goals Take your medications as prescribed Follow your dietary instruction Follow activity as directed Keep your appointments as scheduled Take your immunizations and boosters as scheduled If your symptoms worsen call your PCP, if no PCP go to Urgent Care Center or Emergency Room Smoking is Dangerous to Your Health. Avoid second hand smoke Call the 24-hour hour crisis hotline for domestic abuse at Renzo Figueroa MD Feb 22, 2017 09:17
[2017-02-22] MEDS: CALCIUM/VITAMIN D 250 MG/125 U TAB PO SCH (10:16)
[2017-02-22] MEDS: VITAMIN B COMPLEX/VIT C TAB PO SCH (10:16)
[2017-02-22] MEDS: BUDESONIDE-FORMOTEROL 160/4.5 MCG INHALER INH SCH ×2 (10:16→20:23)
[2017-02-22] MEDS: SODIUM CHLORIDE 0.9% FLUSH 10 ML FLUSH IV FLUSH SCH ×2 (10:16→20:27)
[2017-02-22] MEDS: DOCUSATE SODIUM 100 MG CAP PO SCH ×2 (10:16→20:23)
[2017-02-22] MEDS: LACTOBACILLUS ACIDOPHILUS TAB PO SCH (10:16)
[2017-02-22] MEDS: ATENOLOL 25 MG TAB PO SCH ×2 (10:17→20:24)
[2017-02-22] MEDS: LORATADINE 10 MG TAB PO SCH (10:18)
[2017-02-22] MEDS: DOCUSATE SODIUM 50 MG/SENNA 8.6 MG TAB PO SCH ×2 (10:18→20:23)
[2017-02-22] MEDS: DILTIAZEM HCL 30 MG TAB PO SCH ×4 (10:22→20:25)
[2017-02-22] MEDS ORDERED: WARFARIN SOD 5 MG TAB PO SCH (16:00)
[2017-02-22] MEDS: ONDANSETRON HCL 4 MG/2 ML VIAL IV PRN (20:22)
[2017-02-23] VITALS (7 sets, daily range): BP systolic 101–127; BP diastolic 52–63; PULSE 82–108; RESP 16–20; TEMP 95.6–97.9; O2SAT 95–99
[2017-02-23 00:54] LABS: AUTOMATED NEUTROPHIL # 8.6 TH/MM3 (1.8-7.7); BASOPHIL % 0.3 % (0.0-2.0); EOSINOPHIL % 0.3 % (0.0-4.0); HEMATOCRIT 30.6 % (35.0-46.0); HEMO FLAGS DIFF FINAL; LYMPH % 21.8 % (9.0-44.0); LYMPHOCYTE # 2.9 TH/MM3 (1.0-4.8); MEAN CELL VOLUME 91.9 FL (80.0-100.0); MEAN CORPUSCULAR HEMOGLOBIN 30.7 PG (27.0-34.0); MEAN CORPUSCULAR HGB CONC 33.4 % (32.0-36.0); MONO % 13.5 % (0.0-8.0); NEUT % 64.1 % (16.0-70.0); PLATELET COUNT 137 TH/MM3 (150-450); RED BLOOD COUNT 3.33 MIL/MM3 (4.00-5.30); RED CELL DISTRIBUTION WIDTH 13.9 % (11.6-17.2); WHITE BLOOD COUNT 13.3 TH/MM3 (4.0-11.0)
[2017-02-23] MEDS ORDERED: WARFARIN SOD 5 MG TAB PO SCH (02:00)
[2017-02-23] MEDS: ACETAMINOPHEN 325 MG TAB PO PRN (03:01)
[2017-02-23] MEDS: CALCIUM/VITAMIN D 250 MG/125 U TAB PO SCH (08:09)
[2017-02-23] MEDS: traMADol HCL 50 MG TAB PO PRN ×4 (08:09→22:41)
[2017-02-23] MEDS: VITAMIN B COMPLEX/VIT C TAB PO SCH (08:10)
[2017-02-23] MEDS: LACTOBACILLUS ACIDOPHILUS TAB PO SCH (08:10)
[2017-02-23] MEDS: DILTIAZEM-CD 120 MG CAP ER PO SCH (08:10)
[2017-02-23] MEDS: DOCUSATE SODIUM 100 MG CAP PO SCH ×2 (08:10→21:00)
[2017-02-23] MEDS: DOCUSATE SODIUM 50 MG/SENNA 8.6 MG TAB PO SCH ×2 (08:11→21:00)
[2017-02-23] MEDS: LORATADINE 10 MG TAB PO SCH (08:11)
[2017-02-23] MEDS: ATENOLOL 25 MG TAB PO SCH ×2 (08:11→22:33)
[2017-02-23] MEDS: SODIUM CHLORIDE 0.9% FLUSH 10 ML FLUSH IV FLUSH SCH ×2 (08:12→22:34)
[2017-02-23] MEDS: BUDESONIDE-FORMOTEROL 160/4.5 MCG INHALER INH SCH ×2 (08:14→22:36)
[2017-02-23] MEDS: RESP: IPRATROPIUM 0.5 MG/2.5 ML NEB NEB SCH (08:31)
[2017-02-23] MEDS ORDERED: CYCLOBENZAPRINE HCL 10 MG TAB PO ONE (09:30)
[2017-02-23] MEDS ORDERED: methylPREDNISolone SOD SUCC 125 MG/2 ML VIAL IV PUSH ONE (09:30)
--- NOTE | 2017-02-23 10:21 | HHI.PR ---
Subjective Remarks pt with severe thigh cramps/spasms today she is on edge of bed and appears uncomfortable. Objective Vitals on edge bed rubbing thighs heart irreg lung cta abd s/nt ext left ue diffuse ecchymosis rom intact. distal pulse intact. lower ext no swelling. moves lower ext full range of motion. distal pulses palpable.. ext not cool. Vital Signs Date Time Temp Pulse Resp B/P Pulse Ox O2 Delivery O2 Flow Rate FiO2 02/23/17 07:15 97.4 108 20 122/63 99 02/23/17 04:30 96.8 87 16 126/54 98 02/23/17 00:19 97.9 90 16 101/52 98 02/22/17 20:00 97.7 86 16 107/50 99 02/22/17 15:56 97.1 77 17 105/53 98 02/22/17 11:45 96.0 102 17 123/47 99 02/22/17 02/22/17 02/23/17 15:00 23:00 07:00 Intake Total 400 ml 240 ml 240 ml Balance 400 ml 240 ml 240 ml Intake Oral 400 ml 240 ml 240 ml # Voids 2 1 2 # Bowel Movements 2 0 1 Result Diagram: 02/22/17 2340 02/21/17 0538 Imaging Last Impressions Head CT 02/20/17114 Signed Impressions: Service Date/Time: Monday, February 20, 2017 02:07 - CONCLUSION: Negative noncontrast CT brain. George Cain MD Abdomen/Pelvis CT 02/20/17114 Signed Impressions: Service Date/Time: Monday, February 20, 2017 02:09 - CONCLUSION: 1. Left symphysis pubis fracture extends to the superior and inferior pubic ramus. There is a mild surrounding soft tissue edema. 2. Patchy infiltrates in the right lower lung. George Cain MD Hip and Pelvis X-Ray 02/19/172339 Signed Impressions: Service Date/Time: Sunday, February 19, 2017 23:51 - CONCLUSION: Mildly displaced fracture of the left superior pubic ramus with associated butterfly fragment. George Cain MD Chest X-Ray 02/19/172339 Signed Impressions: Service Date/Time: Maia, February 19, 2017 23:54 - CONCLUSION: Stable infiltrates bilateral apices and right lower lung. No pneumothorax seen. George Cain MD A/P Problem List: (1) Fall Status: Acute Plan: - Pt is an 81 y/o with asthma, COPD, paroxysmal atrial fibrillation on chronic anticoagulation with Coumadin, HTN, and recent pneumonia in 11/2016. - Pt presented to the ED on 02/19/17 after a trip and fall at home - She on a carpet at home and landed on her left arm and left hip. She sustained a 7 cm laceration to the medial aspect of the left arm near the elbow and complained of having left hip pain. - Imaging studies revealed left symphysis pubis fracture extends to the superior and inferior pubic ramus with mild surrounding soft tissue edema and patchy infiltrates in the right lower lung. - Sutures were placed in the pts LUE for laceration repair in the ED. she has had bleeding/oozing from the sutures in the LUE and increased swelling and bruising, from hematoma formation. She has good pulses in the left wrist and the extremity is warm with good capillary refill. - The patient is chronically anticoagulated on Coumadin related to atrial fibrillation and INR in the ED was 2. - anticoagulation reversed and gen surg consulted for hematoma evacuation and wound closure on 02/20. - d/c held on 02/22 due to development of afib/rvr and hr's of 160s - today more cramps/spasms in thighs convert dilt to cardizem cd. cont atenolol at current dose anticoagulation currently on hold ultram prn ordered. muscle relaxer. will hold d/c again today to monitor hr and pain control. snf once more stable (2) Laceration of left upper arm Status: Acute Plan: - See above. (3) Fracture of pelvis Status: Acute Plan: - See above. (4) Atrial fibrillation Status: Chronic Plan: - see above (5) COPD (chronic obstructive pulmonary disease) Status: Chronic Plan: - Home meds continued - Duonebs Problem Qualifiers (1) Fall: Qualified Code: W19.XXXA - Fall, initial encounter (2) Laceration of left upper arm: Qualified Code: S41.112A - Laceration of left upper arm, initial encounter (3) Fracture of pelvis: Qualified Code: S32.502A - Closed fracture of left pubis, unspecified portion of pubis, initial encounter (4) Atrial fibrillation: Qualified Code: I48.0 - Paroxysmal atrial fibrillation Renzo Figueroa MD Feb 23, 2017 10:21
[2017-02-23 11:45] LABS: MAGNESIUM 1.5 MG/DL (1.5-2.5)
[2017-02-23] MEDS: ONDANSETRON HCL 4 MG/2 ML VIAL IV PRN (12:37)
[2017-02-23] MEDS ORDERED: SODIUM CHLOR 0.9% 1000 ML INJ 1,000 ML IV SCH (13:00)
[2017-02-23] MEDS: CYCLOBENZAPRINE HCL 10 MG TAB PO SCH ×2 (13:40→22:34)
[2017-02-24] VITALS (8 sets, daily range): BP systolic 98–128; BP diastolic 45–71; PULSE 68–102; RESP 15–21; TEMP 95.1–96.9; O2SAT 96–100
[2017-02-24] MEDS: traMADol HCL 50 MG TAB PO PRN ×4 (03:57→20:18)
[2017-02-24] MEDS: CYCLOBENZAPRINE HCL 10 MG TAB PO SCH ×3 (06:00→21:43)
[2017-02-24 08:32] LABS: BICARBONATE 24.3 MEQ/L (21.0-32.0)
[2017-02-24] MEDS: DILTIAZEM-CD 120 MG CAP ER PO SCH ×2 (09:00→10:21)
[2017-02-24] MEDS ORDERED: SODIUM CHLORIDE 1 GRAM TAB PO ONE ×2 (10:00→12:00)
[2017-02-24] MEDS: CALCIUM/VITAMIN D 250 MG/125 U TAB PO SCH (10:24)
[2017-02-24] MEDS: VITAMIN B COMPLEX/VIT C TAB PO SCH (10:24)
[2017-02-24] MEDS: DOCUSATE SODIUM 100 MG CAP PO SCH ×2 (10:25→20:18)
[2017-02-24] MEDS: LACTOBACILLUS ACIDOPHILUS TAB PO SCH (10:25)
[2017-02-24] MEDS: DOCUSATE SODIUM 50 MG/SENNA 8.6 MG TAB PO SCH ×2 (10:25→20:21)
[2017-02-24] MEDS: LORATADINE 10 MG TAB PO SCH (10:25)
[2017-02-24] MEDS: ATENOLOL 25 MG TAB PO SCH ×2 (10:25→20:43)
[2017-02-24] MEDS: SODIUM CHLORIDE 0.9% FLUSH 10 ML FLUSH IV FLUSH SCH ×2 (10:27→20:22)
[2017-02-24] MEDS: BUDESONIDE-FORMOTEROL 160/4.5 MCG INHALER INH SCH ×2 (10:28→20:22)
--- NOTE | 2017-02-24 12:06 | HHI.PR ---
Subjective Remarks leg pain much better. comfortable some oozing at left arm surgical site. no confusion. Objective Vitals heart irreg lung cta abd s/nt ext left ue diffuse ecchymosis with left arm lac. swelling of forearm and hand Vital Signs Date Time Temp Pulse Resp B/P Pulse Ox O2 Delivery O2 Flow Rate FiO2 02/24/17 10:26 84 128/58 02/24/17 08:00 95.8 84 15 98/71 99 02/24/17 04:39 96.8 86 17 118/63 100 02/24/17 00:45 96.9 89 17 120/63 99 02/23/17 20:40 96.5 93 17 120/56 98 02/23/17 16:45 95.6 88 16 127/61 97 02/23/17 13:00 95.9 89 20 113/60 95 02/23/17 02/23/17 02/24/17 15:00 23:00 07:00 Intake Total 920 ml 240 ml 978 ml Balance 920 ml 240 ml 978 ml Intake Oral 920 ml 240 ml 360 ml IV Total 618 ml # Voids 3 2 2 # Bowel Movements 0 0 0 Result Diagram: 02/22/17 2340 02/24/17 0738 Imaging Last Impressions Head CT 02/20/17114 Signed Impressions: Service Date/Time: Monday, February 20, 2017 02:07 - CONCLUSION: Negative noncontrast CT brain. George Cain MD Abdomen/Pelvis CT 02/20/17114 Signed Impressions: Service Date/Time: Monday, February 20, 2017 02:09 - CONCLUSION: 1. Left symphysis pubis fracture extends to the superior and inferior pubic ramus. There is a mild surrounding soft tissue edema. 2. Patchy infiltrates in the right lower lung. George Cain MD Hip and Pelvis X-Ray 02/19/172339 Signed Impressions: Service Date/Time: Sunday, February 19, 2017 23:51 - CONCLUSION: Mildly displaced fracture of the left superior pubic ramus with associated butterfly fragment. George Cain MD Chest X-Ray 02/19/172339 Signed Impressions: Service Date/Time: Sunday, February 19, 2017 23:54 - CONCLUSION: Stable infiltrates bilateral apices and right lower lung. No pneumothorax seen. George Cain MD A/P Problem List: (1) Fall Status: Acute Plan: - Pt is an 81 y/o with asthma, COPD, paroxysmal atrial fibrillation on chronic anticoagulation with Coumadin, HTN, and recent pneumonia in 11/2016. - Pt presented to the ED on 02/19/17 after a trip and fall at home - She slipped on a carpet at home and landed on her left arm and left hip. She sustained a 7 cm laceration to the medial aspect of the left arm near the elbow and complained of having left hip pain. - Imaging studies revealed left symphysis pubis fracture extends to the superior and inferior pubic ramus with mild surrounding soft tissue edema and patchy infiltrates in the right lower lung. - Sutures were placed in the pts LUE for laceration repair in the ED. she has had bleeding/oozing from the sutures in the LUE and increased swelling and bruising, from hematoma formation. She has good pulses in the left wrist and the extremity is warm with good capillary refill. - The patient is chronically anticoagulated on Coumadin related to atrial fibrillation and INR in the ED was 2. - anticoagulation reversed and gen surg consulted for hematoma evacuation and wound closure on 02/20. - d/c held on 02/22 due to development of afib/rvr and hr's of 160s - d/c held 02/23 due to severe spasms/cramps in both thighs - today worsening hyponatremia. says she had poor po intake. no confusion at this time converted dilt to cardizem cd. cont atenolol at current dose anticoagulation currently on hold ultram prn ordered. muscle relaxer prn helped the thigh pain will hold d/c again today to monitor hr and pain control. also need to check urine and serum osmols, urine na level and determine cause of hyponatremia.. the na level worsened with NS overnight. snf once more stable (2) Laceration of left upper arm Status: Acute Plan: - See above. (3) Fracture of pelvis Status: Acute Plan: - See above. (4) Atrial fibrillation Status: Chronic Plan: - see above (5) COPD (chronic obstructive pulmonary disease) Status: Chronic Plan: - Home meds continued - Duonebs Problem Qualifiers (1) Fall: Qualified Code: W19.XXXA - Fall, initial encounter (2) Laceration of left upper arm: Qualified Code: S41.112A - Laceration of left upper arm, initial encounter (3) Fracture of pelvis: Qualified Code: S32.502A - Closed fracture of left pubis, unspecified portion of pubis, initial encounter (4) Atrial fibrillation: Qualified Code: I48.0 - Paroxysmal atrial fibrillation Renzo Figueroa MD Feb 24, 2017 12:06
[2017-02-24] MEDS: SODIUM CHLORIDE 1 GRAM TAB PO SCH (20:18)
[2017-02-25] VITALS: BP 120/57; PULSE 85; RESP 18; TEMP 96; O2SAT 95
[2017-02-25 04:00] VITALS: BP 135/65; PULSE 79; RESP 20; TEMP 98; O2SAT 97
[2017-02-25] MEDS: CYCLOBENZAPRINE HCL 10 MG TAB PO SCH ×3 (06:04→21:24)
[2017-02-25] MEDS: traMADol HCL 50 MG TAB PO PRN ×3 (06:05→21:23)
[2017-02-25 07:43] LABS: BICARBONATE 27.3 MEQ/L (21.0-32.0); POTASSIUM 4.8 MEQ/L (3.5-5.1)
[2017-02-25 07:59] VITALS: BP 103/48; PULSE 84; RESP 17; TEMP 95.6; O2SAT 98
[2017-02-25] MEDS: LORATADINE 10 MG TAB PO SCH (09:46)
[2017-02-25] MEDS: ATENOLOL 25 MG TAB PO SCH ×2 (09:47→21:23)
[2017-02-25] MEDS: LACTOBACILLUS ACIDOPHILUS TAB PO SCH (09:47)
[2017-02-25] MEDS: SODIUM CHLORIDE 1 GRAM TAB PO SCH ×2 (09:47→21:23)
[2017-02-25] MEDS: DOCUSATE SODIUM 50 MG/SENNA 8.6 MG TAB PO SCH ×2 (09:47→21:24)
[2017-02-25] MEDS: DOCUSATE SODIUM 100 MG CAP PO SCH ×2 (09:47→21:24)
[2017-02-25] MEDS: CALCIUM/VITAMIN D 250 MG/125 U TAB PO SCH (09:47)
[2017-02-25] MEDS: VITAMIN B COMPLEX/VIT C TAB PO SCH (09:47)
[2017-02-25] MEDS: DILTIAZEM-CD 120 MG CAP ER PO SCH (09:47)
[2017-02-25] MEDS: BUDESONIDE-FORMOTEROL 160/4.5 MCG INHALER INH SCH ×2 (09:48→21:25)
[2017-02-25] MEDS: ACETAMINOPHEN 325 MG TAB PO PRN (09:48)
[2017-02-25] MEDS: SODIUM CHLORIDE 0.9% FLUSH 10 ML FLUSH IV FLUSH SCH ×2 (09:51→21:24)
[2017-02-25 11:47] VITALS: BP 115/49; PULSE 83; RESP 17; TEMP 95.7; O2SAT 99
--- NOTE | 2017-02-25 14:42 | HHI.PR ---
Subjective Remarks Pt reports that she is still having spasms of the LE but the muscle relaxer and tramadol do help She has not had a BM Not eating a lot but trying to eat more Objective Vitals Vital Signs Date Time Temp Pulse Resp B/P Pulse Ox O2 Delivery O2 Flow Rate FiO2 02/25/17 11:47 95.7 83 17 115/49 99 02/25/17 07:59 95.6 84 17 103/48 98 02/25/17 04:00 98.0 79 20 135/65 97 02/25/17 00:00 96.0 85 18 120/57 95 02/24/17 20:59 83 02/24/17 20:00 96.0 68 18 112/60 96 02/24/17 16:00 95.7 92 21 101/45 98 02/24/17 02/24/17 02/25/17 15:00 23:00 07:00 Intake Total 480 ml 700 ml 240 ml Output Total 700 ml Balance -220 ml 700 ml 240 ml Intake Oral 480 ml 700 ml 240 ml Output Urine Total 700 ml # Voids 3 1 4 # Bowel Movements 0 0 Result Diagram: 02/22/17 2340 02/25/17 0604 Other Results Laboratory Tests Test 02/24/17 02/24/17 02/24/17 02/25/17 07:38 10:20 18:13 06:04 Sodium Level 123 MEQ/L 124 MEQ/L 128 MEQ/L Potassium Level 4.0 MEQ/L 4.8 MEQ/L Chloride Level 90 MEQ/L 95 MEQ/L Carbon Dioxide Level 24.3 MEQ/L 27.3 MEQ/L Anion Gap 9 MEQ/L 6 MEQ/L Blood Urea Nitrogen 11 MG/DL 13 MG/DL Creatinine 0.65 MG/DL 0.57 MG/DL Estimat Glomerular Filtration 87 ML/MIN 101 ML/MIN Rate Random Glucose 125 MG/DL 92 MG/DL Serum Osmolality 256 MOSM/KG Calcium Level 8.7 MG/DL 8.8 MG/DL Urine Osmolality 106 MOSM/KG Urine Random Sodium 9 MEQ/L Imaging Last Impressions Head CT 02/20/17114 Signed Impressions: Service Date/Time: Monday, February 20, 2017 02:07 - CONCLUSION: Negative noncontrast CT brain. George Cain MD Abdomen/Pelvis CT 02/20/17114 Signed Impressions: Service Date/Time: Monday, February 20, 2017 02:09 - CONCLUSION: 1. Left symphysis pubis fracture extends to the superior and inferior pubic ramus. There is a mild surrounding soft tissue edema. 2. Patchy infiltrates in the right lower lung. George Cain MD Hip and Pelvis X-Ray 02/19/17 2340 Signed Impressions: Service Date/Time: Sunday, February 19, 2017 23:51 - CONCLUSION: Mildly displaced fracture of the left superior pubic ramus with associated butterfly fragment. George Cain MD Chest X-Ray 02/19/170 Signed Impressions: Service Date/Time: Sunday, February 19, 2017 23:54 - CONCLUSION: Stable infiltrates bilateral apices and right lower lung. No pneumothorax seen. George Cain MD Objective Remarks General: NAD, AAOx3 Chest: CTA Cardiac: Irregular, rate controlled in the 70's on telemetry Abd: +BS, soft ND/NT Ext: LUE with diffuse ecchymosis, left arm laceration. Swelling of forearm and hand on the LUE A/P Problem List: (1) Fall Status: Acute Plan: - Pt is an 81 y/o with asthma, COPD, paroxysmal atrial fibrillation on chronic anticoagulation with Coumadin, HTN, and recent pneumonia in 11/2016. - Pt presented to the ED on 02/19/17 after a trip and fall at home - She slipped on a carpet at home and landed on her left arm and left hip. She sustained a 7 cm laceration to the medial aspect of the left arm near the elbow and complained of having left hip pain. - Imaging studies revealed left symphysis pubis fracture extends to the superior and inferior pubic ramus with mild surrounding soft tissue edema and patchy infiltrates in the right lower lung. - Sutures were placed in the pts LUE for laceration repair in the ED. she has had bleeding/oozing from the sutures in the LUE and increased swelling and bruising, from large hematoma formation. She had good pulses in the left wrist and the extremity is warm with good capillary refill. - The patient is chronically anticoagulated on Coumadin related to atrial fibrillation and INR in the ED was 2. - Anticoagulation reversed and gen surg consulted for hematoma evacuation and wound closure on 6/28. - d/c was held on 02/22 due to development of afib/rvr and hr's of 160s - Pt was able to be converted to Cardizem CD 120mg po daily - Pt is on Atenolol 12.5mg Q12H - Anticoagulation currently on hold - d/c was held on 02/23 due to severe spasms/cramps in both thighs - Pt is on Flexeril 5mg Q8H PRN - Ultram 50 Q4H PRN - d/c held on 02/24 due to worsening hyponatremia. Pt has had poor po intake. - Urine osmols low at 106, Serum osmols low at 256, and urine Na+ 9. - Serum Na+ today slightly improved to 128 today. - Anticipate d/c to SNF once more stable (2) Laceration of left upper arm Status: Acute Plan: - See above. (3) Fracture of pelvis Status: Acute Plan: - See above. (4) Atrial fibrillation Status: Chronic Plan: - see above (5) COPD (chronic obstructive pulmonary disease) Status: Chronic Plan: - Home meds continued - Duonebs Assessment and Plan Patient examined. Assessment and plan formulated with Stephanie Plascencia PA-C. I agree with the above. Problem Qualifiers (1) Fall: Qualified Code: W19.XXXA - Fall, initial encounter (2) Laceration of left upper arm: Qualified Code: S41.112A - Laceration of left upper arm, initial encounter (3) Fracture of pelvis: Qualified Code: S32.502A - Closed fracture of left pubis, unspecified portion of pubis, initial encounter (4) Atrial fibrillation: Qualified Code: I48.0 - Paroxysmal atrial fibrillation Stephanie Plascencia Feb 25, 2017 14:42 Venkat Hernandez DO Mar 03, 2017 10:09
[2017-02-25 16:17] VITALS: BP 115/61; PULSE 82; RESP 17; TEMP 96; O2SAT 95
[2017-02-25 20:00] VITALS: BP 119/56; PULSE 90; PULSE 91; RESP 17; TEMP 98.1; O2SAT 99
[2017-02-26] VITALS (8 sets, daily range): BP systolic 107–123; BP diastolic 50–58; PULSE 73–98; RESP 16–18; TEMP 95.8–97.7; O2SAT 96–99
[2017-02-26] MEDS: traMADol HCL 50 MG TAB PO PRN ×4 (02:58→20:54)
[2017-02-26] MEDS: CYCLOBENZAPRINE HCL 10 MG TAB PO SCH ×3 (05:39→20:54)
[2017-02-26 05:54] LABS: AUTOMATED NEUTROPHIL # 7.8 TH/MM3 (1.8-7.7); BASOPHIL % 0.1 % (0.0-2.0); EOSINOPHIL % 0.2 % (0.0-4.0); HEMATOCRIT 28.5 % (35.0-46.0); HEMO FLAGS DIFF FINAL; LYMPH % 23.4 % (9.0-44.0); LYMPHOCYTE # 2.9 TH/MM3 (1.0-4.8); MEAN CELL VOLUME 92.4 FL (80.0-100.0); MEAN CORPUSCULAR HEMOGLOBIN 31.3 PG (27.0-34.0); MEAN CORPUSCULAR HGB CONC 33.8 % (32.0-36.0); MONO % 12.1 % (0.0-8.0); NEUT % 64.2 % (16.0-70.0); PLATELET COUNT 182 TH/MM3 (150-450); RED BLOOD COUNT 3.08 MIL/MM3 (4.00-5.30); RED CELL DISTRIBUTION WIDTH 13.8 % (11.6-17.2); WHITE BLOOD COUNT 12.2 TH/MM3 (4.0-11.0)
[2017-02-26 06:31] LABS: BICARBONATE 26.5 MEQ/L (21.0-32.0); MAGNESIUM 1.6 MG/DL (1.5-2.5)
[2017-02-26] MEDS: DOCUSATE SODIUM 50 MG/SENNA 8.6 MG TAB PO SCH ×2 (09:00→20:54)
[2017-02-26] MEDS: LACTOBACILLUS ACIDOPHILUS TAB PO SCH (10:31)
[2017-02-26] MEDS: DILTIAZEM-CD 120 MG CAP ER PO SCH (10:31)
[2017-02-26] MEDS: DOCUSATE SODIUM 100 MG CAP PO SCH ×2 (10:31→20:54)
[2017-02-26] MEDS: SODIUM CHLORIDE 1 GRAM TAB PO SCH ×2 (10:32→20:54)
[2017-02-26] MEDS: VITAMIN B COMPLEX/VIT C TAB PO SCH (10:32)
[2017-02-26] MEDS: CALCIUM/VITAMIN D 250 MG/125 U TAB PO SCH (10:32)
[2017-02-26] MEDS: SODIUM CHLORIDE 0.9% FLUSH 10 ML FLUSH IV FLUSH SCH ×2 (10:32→20:54)
[2017-02-26] MEDS: LORATADINE 10 MG TAB PO SCH (10:32)
[2017-02-26] MEDS: ATENOLOL 25 MG TAB PO SCH ×2 (10:33→20:54)
[2017-02-26] MEDS: BUDESONIDE-FORMOTEROL 160/4.5 MCG INHALER INH SCH ×2 (10:37→20:55)
--- NOTE | 2017-02-26 16:01 | HHI.PR ---
Subjective Remarks No new complaints. Objective Vitals Vital Signs Date Time Temp Pulse Resp B/P Pulse Ox O2 Delivery O2 Flow Rate FiO2 02/26/17 12:00 96.6 85 18 114/50 99 02/26/17 08:00 95.8 75 18 111/52 96 02/26/17 04:01 97.6 73 17 107/57 99 02/26/17 01:07 79 02/26/17 00:00 97.7 85 16 110/57 97 02/25/17 20:00 98.1 90 17 119/56 99 02/25/17 20:00 91 02/25/17 16:17 96.0 82 17 115/61 95 02/25/17 02/25/17 02/26/17 15:00 23:00 07:00 Intake Total 400 ml 600 ml 360 ml Balance 400 ml 600 ml 360 ml Intake Oral 400 ml 600 ml 360 ml # Voids 3 1 3 # Bowel Movements 0 Result Diagram: 02/26/17 0530 02/26/17 0530 Imaging Last Impressions Head CT 02/20/17114 Signed Impressions: Service Date/Time: Monday, February 20, 2017 02:07 - CONCLUSION: Negative noncontrast CT brain. George aCin MD Abdomen/Pelvis CT 02/20/17114 Signed Impressions: Service Date/Time: Monday, February 20, 2017 02:09 - CONCLUSION: 1. Left symphysis pubis fracture extends to the superior and inferior pubic ramus. There is a mild surrounding soft tissue edema. 2. Patchy infiltrates in the right lower lung. George Cain MD Hip and Pelvis X-Ray 02/19/172339 Signed Impressions: Service Date/Time: Sunday, February 19, 2017 23:51 - CONCLUSION: Mildly displaced fracture of the left superior pubic ramus with associated butterfly fragment. George Cain MD Chest X-Ray 02/19/172339 Signed Impressions: Service Date/Time: Sunday, February 19, 2017 23:54 - CONCLUSION: Stable infiltrates bilateral apices and right lower lung. No pneumothorax seen. George Cain MD Objective Remarks General: NAD, AAOx3 Chest: CTA Cardiac: Irregular, rate controlled in the 70's on telemetry Abd: +BS, soft ND/NT Ext: LUE with diffuse ecchymosis, left arm laceration. Swelling of forearm and hand on the LUE A/P Problem List: (1) Fall Status: Acute Plan: - Pt is an 81 y/o with asthma, COPD, paroxysmal atrial fibrillation on chronic anticoagulation with Coumadin, HTN, and recent pneumonia in 11/2016. - Pt presented to the ED on 02/19/17 after a trip and fall at home - She slipped on a carpet at home and landed on her left arm and left hip. She sustained a 7 cm laceration to the medial aspect of the left arm near the elbow and complained of having left hip pain. - Imaging studies revealed left symphysis pubis fracture extends to the superior and inferior pubic ramus with mild surrounding soft tissue edema and patchy infiltrates in the right lower lung. - Sutures were placed in the pts LUE for laceration repair in the ED. she has had bleeding/oozing from the sutures in the LUE and increased swelling and bruising, from large hematoma formation. She had good pulses in the left wrist and the extremity is warm with good capillary refill. - The patient is chronically anticoagulated on Coumadin related to atrial fibrillation and INR in the ED was 2. - Anticoagulation reversed and gen surg consulted for hematoma evacuation and wound closure on 02/20. - d/c was held on 02/22 due to development of afib/rvr and hr's of 160s - Pt was able to be converted to Cardizem CD 120mg po daily - Pt is on Atenolol 12.5mg Q12H - Anticoagulation currently on hold - HR is now controlled on current regimen - d/c was held on 02/23 due to severe spasms/cramps in both thighs, now improved - Pt is on Flexeril 5mg Q8H PRN - Ultram 50 Q4H PRN - d/c held on 02/24 due to worsening hyponatremia. Pt has had poor po intake. - Urine osmols low at 106, Serum osmols low at 256, and urine Na+ 9. - Sodium continues to improve - repeat BMP in AM - anticipate d/c to SNF 02/27 (2) Laceration of left upper arm Status: Acute Plan: - See above. (3) Fracture of pelvis Status: Acute Plan: - See above. (4) Atrial fibrillation Status: Chronic Plan: - see above (5) COPD (chronic obstructive pulmonary disease) Status: Chronic Plan: - Home meds continued - Duonebs Problem Qualifiers (1) Fall: Qualified Code: W19.XXXA - Fall, initial encounter (2) Laceration of left upper arm: Qualified Code: S41.112A - Laceration of left upper arm, initial encounter (3) Fracture of pelvis: Qualified Code: S32.502A - Closed fracture of left pubis, unspecified portion of pubis, initial encounter (4) Atrial fibrillation: Qualified Code: I48.0 - Paroxysmal atrial fibrillation Venkat Hernandez DO Feb 26, 2017 16:01
[2017-02-26] MEDS: PHENOL 1.4% SOLN 180 ML BTL OROPHARYNG PRN (21:20)
[2017-02-27] VITALS: BP 110/64; PULSE 65; PULSE 84; RESP 16; TEMP 98.1; O2SAT 97
[2017-02-27] MEDS: traMADol HCL 50 MG TAB PO PRN ×4 (01:56→18:22)
[2017-02-27 05:30] VITALS: BP 114/68; PULSE 80; RESP 16; TEMP 98.1; O2SAT 95
[2017-02-27] MEDS: CYCLOBENZAPRINE HCL 10 MG TAB PO SCH ×2 (05:51→13:47)
[2017-02-27 08:00] VITALS: BP 116/58; PULSE 88; RESP 18; TEMP 96.3; O2SAT 95
[2017-02-27] MEDS: SODIUM CHLORIDE 0.9% FLUSH 10 ML FLUSH IV FLUSH SCH (09:00)
[2017-02-27] MEDS: DOCUSATE SODIUM 50 MG/SENNA 8.6 MG TAB PO SCH (09:00)
[2017-02-27 10:05] LABS: AUTOMATED NEUTROPHIL # 6.5 TH/MM3 (1.8-7.7); BASOPHIL % 0.1 % (0.0-2.0); EOSINOPHIL # 0.1 TH/MM3 (0-0.4); EOSINOPHIL % 0.5 % (0.0-4.0); HEMATOCRIT 30.5 % (35.0-46.0); HEMO FLAGS DIFF FINAL; LYMPH % 32.2 % (9.0-44.0); LYMPHOCYTE # 3.7 TH/MM3 (1.0-4.8); MEAN CELL VOLUME 92.9 FL (80.0-100.0); MEAN CORPUSCULAR HEMOGLOBIN 31.8 PG (27.0-34.0); MEAN CORPUSCULAR HGB CONC 34.2 % (32.0-36.0); MONO % 9.7 % (0.0-8.0); NEUT % 57.5 % (16.0-70.0); PLATELET COUNT 202 TH/MM3 (150-450); RED BLOOD COUNT 3.28 MIL/MM3 (4.00-5.30); RED CELL DISTRIBUTION WIDTH 14.5 % (11.6-17.2); WHITE BLOOD COUNT 11.4 TH/MM3 (4.0-11.0)
[2017-02-27 10:18] LABS: BICARBONATE 26.4 MEQ/L (21.0-32.0); MAGNESIUM 1.8 MG/DL (1.5-2.5); POTASSIUM 3.6 MEQ/L (3.5-5.1)
[2017-02-27] MEDS: LACTOBACILLUS ACIDOPHILUS TAB PO SCH (10:26)
[2017-02-27] MEDS: ATENOLOL 25 MG TAB PO SCH (10:27)
[2017-02-27] MEDS: CALCIUM/VITAMIN D 250 MG/125 U TAB PO SCH (10:27)
[2017-02-27] MEDS: DILTIAZEM-CD 120 MG CAP ER PO SCH (10:27)
[2017-02-27] MEDS: SODIUM CHLORIDE 1 GRAM TAB PO SCH (10:27)
[2017-02-27] MEDS: LORATADINE 10 MG TAB PO SCH (10:27)
[2017-02-27] MEDS: DOCUSATE SODIUM 100 MG CAP PO SCH (10:27)
[2017-02-27] MEDS: VITAMIN B COMPLEX/VIT C TAB PO SCH (10:27)
[2017-02-27] MEDS: BUDESONIDE-FORMOTEROL 160/4.5 MCG INHALER INH SCH (10:28)
[2017-02-27] MEDS: PHENOL 1.4% SOLN 180 ML BTL OROPHARYNG PRN (10:28)
[2017-02-27 12:00] VITALS: BP 120/56; PULSE 91; RESP 18; TEMP 96.7; O2SAT 97
[2017-02-27 16:00] VITALS: BP 108/55; PULSE 88; RESP 18; TEMP 96.2; O2SAT 97
[2017-02-27] MEDS ORDERED: CARD120C4 PO (16:18)
--- NOTE | 2017-02-27 16:22 | HHI.DS ---
Discharge Summary Admission Date Feb 20, 2017 at 01:41 Discharge Date: Feb 27, 2017 Admitting Diagnosis Pelvis fracture s/p fall (1) Fall Diagnosis: Principal (2) Laceration of left upper arm Diagnosis: Principal (3) Fracture of pelvis Diagnosis: Principal (4) Atrial fibrillation Diagnosis: Principal (5) COPD (chronic obstructive pulmonary disease) Diagnosis: Secondary Consultants Dr. Alfred Loo, General Surgery Brief History Ms. Keith is an 80 y/o WF with asthma, COPD, paroxysmal atrial fibrillation on chronic anticoagulation with Coumadin, HTN, pulmonary HTN, and recent pneumonia in 11/2016. She presented to the ED at [facility] on 02/19/17 after reportedly tripping and falling on a carpet at home and landed on her left arm and left hip. The patient sustained a 7 cm laceration to the medial aspect of the left arm near the elbow and complained of having left hip pain. She has full range of motion of the left arm without any bony tenderness reported. She denies having any loss of consciousness. The patient is chronically anticoagulated on Coumadin related to atrial fibrillation and INR in the ED was 2. Imaging studies revealed left symphysis pubis fracture extends to the superior and inferior pubic ramus with mild surrounding soft tissue edema and patchy infiltrates in the right lower lung. Sutures were placed in the pts LUE for laceration repair. Today, she has had bleeding/oozing from the sutures in the LUE and increased swelling and bruising, likely from hematoma formation. She has good pulses in the left wrist and the extremity is warm with good capillary refill. She denies having any chest pain, chest pressure, shortness of breath, abdominal pain. She denies having any numbness or tingling to her extremities, weakness of her extremities, recent fevers, congestion, vomiting, diarrhea, or urinary symptoms. CBC/BMP: 02/27/17 0855 02/27/17 0855 Significant Findings Laboratory Tests Test 02/24/17 02/25/17 02/26/17 02/27/17 18:13 06:04 05:30 08:55 Sodium Level 124 MEQ/L 128 MEQ/L 134 MEQ/L 134 MEQ/L (136-145) (136-145) (136-145) (136-145) Chloride Level 95 MEQ/L (98-107) White Blood Count 12.2 TH/MM3 11.4 TH/MM3 (4.0-11.0) (4.0-11.0) Red Blood Count 3.08 MIL/MM3 3.28 MIL/MM3 (4.00-5.30) (4.00-5.30) Hemoglobin 9.6 GM/DL 10.5 GM/DL (11.6-15.3) (11.6-15.3) Hematocrit 28.5 % 30.5 % (35.0-46.0) (35.0-46.0) Monocytes (%) (Auto) 12.1 % 9.7 % (0.0-8.0) (0.0-8.0) Neutrophils # (Auto) 7.8 TH/MM3 (1.8-7.7) Monocytes # (Auto) 1.5 TH/MM3 1.1 TH/MM3 (0-0.9) (0-0.9) PE at Discharge General: NAD, AAOx3 Chest: CTA Cardiac: Irregular, rate controlled in the 70's on telemetry Abd: +BS, soft ND/NT Ext: LUE with diffuse ecchymosis, left arm laceration. Swelling of forearm and hand on the E Hospital Course 1) Fall Status: Acute Plan: - Pt is an 81 y/o with asthma, COPD, paroxysmal atrial fibrillation on chronic anticoagulation with Coumadin, HTN, and recent pneumonia in 11/2016. - Pt presented to the ED on 02/19/17 after a trip and fall at home - She slipped on a carpet at home and landed on her left arm and left hip. She sustained a 7 cm laceration to the medial aspect of the left arm near the elbow and complained of having left hip pain. - Imaging studies revealed left symphysis pubis fracture extends to the superior and inferior pubic ramus with mild surrounding soft tissue edema and patchy infiltrates in the right lower lung. - Sutures were placed in the pts LUE for laceration repair in the ED. she has had bleeding/oozing from the sutures in the LUE and increased swelling and bruising, from large hematoma formation. She had good pulses in the left wrist and the extremity is warm with good capillary refill. - The patient is chronically anticoagulated on Coumadin related to atrial fibrillation and INR in the ED was 2. - Anticoagulation reversed and gen surg consulted for hematoma evacuation and wound closure on 02/20. - d/c was held on 02/22 due to development of afib/rvr and hr's of 160s - Pt was able to be converted to Cardizem CD 120mg po daily - Pt is on Atenolol 12.5mg Q12H - Anticoagulation currently on hold - HR is now controlled on current regimen - d/c was held on 02/23 due to severe spasms/cramps in both thighs, now improved - Pt is on Flexeril 5mg Q8H PRN - Ultram 50 Q4H PRN - d/c held on 02/24 due to worsening hyponatremia. Pt has had poor po intake. - Urine osmols low at 106, Serum osmols low at 256, and urine Na+ 9. - Sodium improved 134 (02/27/17) - discharge to SNF - see discharge orders (2) Laceration of left upper arm Status: Acute Plan: - See above. (3) Fracture of pelvis Status: Acute Plan: - See above. (4) Atrial fibrillation Status: Chronic Plan: - see above (5) COPD (chronic obstructive pulmonary disease) Status: Chronic Plan: - Home meds continued - Hernandez Pt Condition on Discharge: Stable Discharge Disposition: Discharge to SNF Discharge Instructions DIET: Follow Instructions for: As Tolerated, No Restrictions Activities you can perform: Weight Bearing as Michael Follow up Referrals: PCP Follow-up - [address] [facility] - 2 Weeks with Alfred Olivo MD New Medications: Acetaminophen (Eq Acetaminophen) 325 Mg Tab 650 MG PO Q4H PRN PAIN SCALE 1 TO 10 #0 TAB Diltiazem CD 24 HR (Cardizem CD 24 HR) 120 Mg Caper 120 MG PO DAILY A. fib #31 CAP Continued Medications: Ascorbic Acid (Vitamin C) 250 Mg Tab 500 MG PO DAILY Nutritional Supplement Ref 0 TAB Atenolol (Atenolol) 25 Mg Tab 12.5 MG PO BID Blood Pressure Management #60 Ref 0 TAB B-Complex Vitamins (Vitamin B Complex) 1 Tab 1 CAP PO DAILY Fexofenadine (Jerri Allergy) 180 Mg Tab 180 MG PO DAILY Allergy Management #30 Ref 0 TAB Fluticasone-Salmeterol Inh (Advair Diskus Inh) 250-50 Mcg/Blist Aer 1 PUFF INH BID Rinse mouth after use. #1 Ref 0 INHALER Glucosam/Chondr/Collagn/Hyalur (Glucosamine & Chondroitin Cap) 1 Each Capsule 1 CAP PO BID Ipratropium HFA 12.9 GM Inh (Atrovent HFA 12.9 GM Inh) 17 Mcg/Act Aer 2 PUFF INH BID #1 Ref 0 INHALER Lutein (Lutein) Unknown Strength Tab 1 TAB PO DAILY Nutritional Supplement Ref 0 TAB Misc Natural Products (Glucosamine-Chondroitin) 1 Cap 1 CAP PO BID CAP [place]-3 Fatty Acids ([place]-3 Fish Oil 1000 mg) 1 Cap Cap 1000 MG PO DAILY Probiotic Product (Probiotic) 1 Tab Tab 1 TAB PO DAILY Discontinued Medications: Acetaminophen (Tylenol Extra Strength) 500 Mg Tablet 360 MG PO Q6HR arthritis Warfarin (Coumadin) 5 Mg Tab 5 MG PO TUSA Take 1 tablet (5mg) on Saturday, Saturday, Saturday Blood Clot Prevention #30 Ref 0 TAB Warfarin (Coumadin) 5 Mg Tab 2.5 MG PO SUMOWEFR Take 1/2 tablet (2.5mg) on Saturday,Saturday, and SATURDAY Blood Clot Prevention #30 Ref 0 TAB Venkat Hernandez DO Feb 27, 2017 16:22
--- NOTE | 2017-02-27 16:24 | HHI.DCPOC ---
Discharge Care Plan Diagnosis: (1) Atrial fibrillation (2) Laceration of left upper arm (3) Fracture of pelvis (4) Fall Goals to Promote Your Health * To prevent worsening of your condition and complications * To maintain your health at the optimal level Directions to Meet Your Goals Take your medications as prescribed Follow your dietary instruction Follow activity as directed Keep your appointments as scheduled Take your immunizations and boosters as scheduled If your symptoms worsen call your PCP, if no PCP go to Urgent Care Center or Emergency Room Smoking is Dangerous to Your Health. Avoid second hand smoke Call the 24-hour hour crisis hotline for domestic abuse at Venkat Hernandez DO Feb 27, 2017 16:24
[2017-02-27] MEDS ORDERED: ULTR50TA5 PO (16:28)
[2017-02-27] MEDS ORDERED: CYCL1TAB29 PO (16:28)
[2017-02-27] MEDS ORDERED: PHEN1.4%S OROPHARYNG (16:33)
--- NOTE | 2017-03-05 12:52 | MP ---
cc: ALFRED OLIVO DATE OF 1935 DATE OF OPERATION 02/20/2017 PREOPERATIVE DIAGNOSIS Left arm hematoma. POSTOPERATIVE DIAGNOSIS Left arm hematoma. PROCEDURE Evacuation of left arm hematoma and closure of 8-cm laceration. SURGEON Alfred Olivo MD ANESTHESIA General endotracheal anesthesia. ESTIMATED BLOOD LOSS Scant. FINDINGS Clotted blood in left arm wound. Did not appear to be any active bleeding at the time. The patient has muscular injury. No injury to the nerves identifiable. SPECIMENS None. COMPLICATIONS None. OPERATION The patient was brought to the operating room, placed on the operating table in a supine position. Bilateral sequential inflation devices were placed on her lower extremities, general anesthesia instituted, antibiotics initiated. The left arm was prepped and draped sterilely. The sutures within the left arm lacerations were removed. The hematoma was evacuated. The wound was irrigated with saline. The superficial fascia was approximated with 3-0 Vicryl and the skin edges approximated with 4-0 Monocryl. Sterile dressing was placed. The patient was taken to the recovery room. Alfred Olivo MD JS/SSB /12:02 PM /12:51 PM
--- NOTE | 2017-03-06 19:33 | PD ---
Physical Exam Date Seen by Provider: Feb 19, 2017 Narrative For history of physical examination please see previous provider's note. I was asked to repair laceration to patient's left arm. Data Data Orders Electrocardiogram (02/19/17 23:40) Complete Blood Count With Diff (02/19/17 23:40) Comprehensive Metabolic Panel (02/19/17 23:40) Prothrombin Time / Inr (Pt) (02/19/17 23:40) Act Partial Throm Time (Ptt) (02/19/17 23:40) Chest, Single Ap (02/19/17 23:40) Iv Access Insert/Monitor (02/19/17 23:40) Ecg Monitoring (02/19/17 23:40) Oximetry (02/19/17 23:40) Hip, Uni(Ap&Lat) W Ap Pelvis (02/19/17 23:40) Lidocai-Epi 1%-1:100,000 Inj (Xylocaine- (02/19/17 23:45) Ct Brain W/O Iv Contrast(Rout) (02/20/17 01:15) Ct Abd/Pel W/O Iv Contrast (02/20/17 01:15) Admit Order (Ed Use Only) (02/20/17 01:40) MDM Supervised Visit with AINSLEY: Yes Procedures Procedure Narrative LACERATION LOCATION: Medial aspect of left elbow LENGTH: 3 cm NUMBER OF STITCHES/ZACK: H stitches REPAIR: The area of the laceration was prepped with Betadine and sterilely draped. The laceration was infiltrated with 1% lidocaine with epi. The wound was copiously irrigated and explored without evidence of foreign body, tendon injury or neurovascular injury. The wound was closed using 4-0 Ethilon. This was a 1 layer repair. A sterile dressing was applied. The patient was advised to keep the dressing clean and dry. Patient tolerated the procedure well. Diagnosis Primary Impression: Fall Qualified Code: W19.XXXA - Fall, initial encounter Additional Impressions: Laceration of left upper arm Qualified Code: S41.112A - Laceration of left upper arm, initial encounter Fracture of pelvis Qualified Code: S32.502A - Closed fracture of left pubis, unspecified portion of pubis, initial encounter Patient Instructions: How to Use an Incentive Spirometer (DC), Constipation (DC ), Pelvic Fracture (DC), Home Safety (GEN), Fall Prevention (DC), Hematoma (ED) Scripts Phenol (Phenaseptic)1.4 % Spr2 [place] OROPHARYNG Q2H PRN (sore throat) 10 Days Prov:Venkat Hernandez DO 02/27/17 Tramadol (Ultram)50 Mg Tab50 Mg PO Q4H PRN (pain) #20 TAB Prov:Venkat Hernandez DO 02/27/17 Cyclobenzaprine (Flexeril)10 Mg Tab5 Mg PO Q8HR PRN (muscle spasm) #30 TAB Ref 0 Prov:Venkat Hernandez DO 02/27/17 Diltiazem CD 24 HR (Cardizem CD 24 HR)120 Mg [id number] Mg PO DAILY #31 CAP Prov:Stephanie Plascencia 02/27/17 Acetaminophen (Eq Acetaminophen)325 Mg [id number] Mg PO Q4H PRN (PAIN SCALE 1 TO 10 ) #0 TAB Prov:Renzo Figueroa MD 02/22/17 Tory Palacio Mar 06, 2017 19:33
== END 2017-02-27 19:16 | DRG 536 ==
LOC: NEPE 23:18 → NEDA 02-20 01:41 → N06B 02-20 03:50 → N06A 02-24 15:09
PROVIDERS: ADMIT Hospitalist; ATTEND Hospitalist
PROC: 0X990ZZ Drainage of Left Upper Arm, Open Approach (ICD-10-PCS; 2017-02-20)
PROC: 0JCF0ZZ Extirpation of Matter from Left Upper Arm Subcutaneous Tissue and Fascia, Open Approach (ICD-10-PCS; 2017-02-20)
PROC: 0HQCXZZ Repair Left Upper Arm Skin, External Approach (ICD-10-PCS; principal; 2017-02-20 17:54)
DX: S32.592A Other specified fracture of left pubis, initial encounter for closed fracture (principal); D68.32 Hemorrhagic disorder due to extrinsic circulating anticoagulants; I27.2 Other secondary pulmonary hypertension; L76.32 Postprocedural hematoma of skin and subcutaneous tissue following other procedure; E87.1 Hypo-osmolality and hyponatremia; I48.0 Paroxysmal atrial fibrillation; J44.9 Chronic obstructive pulmonary disease, unspecified; S41.112A Laceration without foreign body of left upper arm, initial encounter; M19.90 Unspecified osteoarthritis, unspecified site; W01.0XXA Fall on same level from slipping, tripping and stumbling without subsequent striking against object, initial encounter; Y93.9 Activity, unspecified; Y99.9 Unspecified external cause status; Z87.442 Personal history of urinary calculi; Z79.01 Long term (current) use of anticoagulants; Z87.01 Personal history of pneumonia (recurrent); Y92.009 Unspecified place in unspecified non-institutional (private) residence as the place of occurrence of the external cause; I10 Essential (primary) hypertension; M62.838 Other muscle spasm
CPT/HCPCS: 70450; 71010; 73502; 74176; 76937; 80048; 80053; 83735; 83930; 83935; 84100; 84295; 84300; 85025; 85610; 85730; 86850; 86900; 86901; 93005; 94150; 94640; 94664; J1580; J2270; J2370; J2405; J2930; J3010; J3370; J3430; J7030; J7644